=== PATIENT | male | born 1985 | race Caucasian/White ===

== ENCOUNTER 2020-10-17 06:47 | Day surgery (SDC) | payer OTHER, SELFPAY ==
[2020-10-17] VITALS (7 sets, daily range): BP systolic 131–159; BP diastolic 82–104; PULSE 49–88; RESP 16–22; TEMP 35.9–36.2; O2SAT 98–100; BMI 50.3
--- NOTE | 2020-10-17 07:16 | RAD_ITS ---
STUDY: X-RAY - ABDOMEN/PELVIS REASON FOR EXAM: Male, 35 years old. PREOP LEFT KIDNEY STONE TECHNIQUE: Single AP view of the abdomen / pelvis. COMPARISON: None. FINDINGS: There is a moderate amount of colonic fecal material. The visualized liver, spleen and kidneys are grossly normal in size and morphology. Normal soft tissue structures. There is widening of the femoral necks bilaterally. Femoral acetabular impingement should be ruled out. RAD/Abdomen Single View IMPRESSION: No definite calcification is seen overlying the kidneys or course of the ureters. Electronically Signed: Catracho Castro MD at 13:12 EDT , Service support ,
[2020-10-17] MEDS: Lactated Ringers 1,000 ML 100 ML IV ×2 (07:43→10:30)
--- NOTE | 2020-10-17 08:46 | HP.PCM_ITS ---
HPI - General HPI Narrative LIAM WOODSON, is a 35 M who presents for treatment of a mid left ureteral calculus that has failed to pass. Today a KUB can see the stone in the mid left ureter plan to treat the stone with shockwave lithotripsy. [facility] Medical History (Updated 10/17/20 @ 08:[address] Eder Ruff MD) Alcohol use History of renal disease Non-smoker Wears contact lenses Home Medications oxycodone-acetaminophen [Percocet] 1 tab PO Q4H PRN 10/09/20 [History Last Taken Unknown] tamsulosin [Flomax] 0.4 mg PO QHS 10/09/20 [History Last Taken Unknown] oxycodone-acetaminophen 1 tab PO Q6H PRN 7 Days #14 tab 10/17/20 [Rx Last Taken Unknown] Allergy/AdvReac Type Severity Reaction Status Date / Time No Known Allergies Allergy Verified 10/17/20 07:17 Social History Smoking Status: Never smoker Vital Signs Vital Signs Vital Signs: 10/17/20 07:43 Temperature 97.0 F L Temperature Source Temporal Pulse Rate 49 L Respiratory Rate 16 Respiratory Pattern Normal Blood Pressure 141/83 H Blood Pressure Mean 102 Blood Pressure Source Monitor Blood Pressure Position Semi-Fowlers Blood Pressure Location Left Arm Pulse Ox 98 Oxygen Delivery Method Room Air Weight Weight: 168.3 kg Body Mass Index (BMI) 50.3 Physical Exam Const alert and oriented x3 General Appearance: cooperative HEENT normocephalic, head/scalp atraumatic, EAC's normal and TM's normal bilaterally Eyes PERRL and EOMs intact bilaterally Pupil: sluggish Neck no lymphadenopathy, supple and no JVD General: trachea midline Lymph Lymphatic: no lymphadenopathy noted, lymphedema and lymphadenopathy Resp normal respiratory effort, normal air movement and clear to auscultation bilaterally Cardio regular rate, regular rhythm and peripheral pulses 2+ throughout GI soft to palpation, non-tender and non-distended Extremity normal capillary refill and no clubbing, cyanosis or edema General Extremity: no tenderness to palpation of joints or extremities Skin no rashes or lesions noted General Skin Exam: turgor normal Lesions: no lesions Rashes: no rashes Neuro CN's II-XII intact bilaterally Speech: speech normal Motor Exam: strength 5/5 throughout; Negative for general weakness Psych thought process normal, cooperative and affect normal Appearance: appropriate Assessment & Plan Assessment/Plan (1) Ureteral calculus, left: PLAN: Plan to proceed with shockwave lithotripsy in the left side possible stent.
--- NOTE | 2020-10-17 08:47 | PCM.DC ---
Discharge Instructions Diet Discharge Diet: No restrictions Dressing / Incision Call your doctor if your incision/area has: Continuous Slow Oozing, Increased Pain/ Swelling, Increased Redness and Foul Smelling Discharge Call your doctor if you observe: Fever of 101 or Higher, Numbness or Tingling, Shortness of breath, Dizziness, Calf discomfort and Uncontrolled pain Follow Up Care Please Follow Up With: Eder Ruff MD Test Results: Test results from this visit will be discussed in further detail at your follow-up appointment, if applicable. Discharge Plan Admission Primary Reason for Your Visit: left ESWL Attending Provider: Eder Ruff Primary Care Provider: Care Physician,No Primary Discharge Orders/Prescriptions Prescriptions: New oxycodone-acetaminophen 5-325 mg tablet 1 tab PO Q6H PRN (Reason: pain) 7 Days Qty: 14 RF: 0 Continued oxycodone-acetaminophen [Percocet] 5-325 mg Tablet 1 tab PO Q4H PRN (Reason: Pain) RF: 0 tamsulosin [Flomax] 0.4 mg Capsule 0.4 mg PO QHS RF: 0 Referrals / Follow Up: Eder Ruff MD [STAFF PHYSICIAN] - Care Physician,No Primary [Primary Care Provider] - Disposition Discharge Orders: Discharge Patient (Routine); Ordered 10/17/20 Ordered By: Dr. Eder Ruff
--- NOTE | 2020-10-17 09:57 | PCM.OPRPT ---
Report of Operation Date of Procedure: 10/17/20 Pre-Operative Diagnosis: Left ureteral calculi Post-Operative Diagnosis: Same Surgery/Procedure Performed:: Left extracorporeal shockwave lithotripsy Description of Surgical Findings:: Patient presents to the hospital for treatment of a kidney stone with shockwave lithotripsy. In the preoperative area and x-ray was done to confirm the location of the stone. The x-ray was reviewed and the stone location was reviewed. In the preoperative setting I spoke with the patient regarding the treatment of the stone how the treatment would be conducted and the expectations after surgery. The patient understands there is a risk of bleeding and infection. Also discussed the very rare risk of hematoma or damage to the kidney. We also discussed the risk that the shockwave machine will fail to break the stone adequately and that the patient may need other surgical procedures. We also discussed the possibility that the patient may need a stent after the procedure. After reviewing the procedure with the patient, the patient is signed the consent form all the patient's questions were addressed and was taken back to the operating room for treatment of a kidney stone. Patient was taken back to the operating room, patient was identified by the nursing staff, we identified the side of the treatment and the patient side of treatment had been marked by my initials. The patient underwent general anesthetic and was placed supine on the lithotripter table. We then used fluoroscopy to identify the stone on the left side. We then positioned the patient under the lithotripter and we used triangulation technique to identify the location of the stone and then we made sure that the stone was engaged in the F2 focal point of F2 Donier lithoprior machine. Once the patient was positioned appropriately and the stone was identified and placed in the F2 focal point of the lithotripter machine we then proceeded with shockwave lithotripsy. In the beginning the shockwave was delivered at a rate of 90 shocks per minute, we monitor the EKG for any ectopy. The power was slowly increased to 5 kV and subsequently at the 7 kV. We then proceeded with the treatment we move the therapy had around during the treatment to make sure the stone stayed in the F2 focal point during the entire treatment and after 4000 shockwaves were delivered to the stone under fluoroscopic guidance the treatment was completed. The patient was given instructions to call the office to make an a follow-up appointment with an xray to evaluate the success of the treatment, pateint understands that its possible the stones may need another procedure.At this point the patient's anesthetic was reversed patient was extubated and taken back to the PACU in stable condition. Surgeon: Eder Ruff Type of Anesthesia: General Drains: None Admit VTE Documentation VTE Present on Admission: No VTE Mechan Device Prophylaxis: SCD's
[2020-10-17] MEDS: Ketorolac 15 MG/ML Vial IV (10:30)
== END 2020-10-17 11:32 ==
LOC: SDC 06:50 → AC 06:54
PROVIDERS: Referring Provider Urology; Visit Provider Urology
PROC: (CPT 50590; principal; 2020-10-17 08:50)
DX: N20.1 Calculus of ureter (principal)
CPT/HCPCS: 00873; 50590; 74018; J7120; J2405

== ENCOUNTER → 2020-11-04 08:37 | Outpatient (CLI) | payer OTHER, SELFPAY ==
[2020-10-17 07:43] VITALS: BMI 50.3
--- NOTE | 2020-11-04 08:45 | RAD_ITS ---
STUDY: X-RAY - ABDOMEN/PELVIS REASON FOR EXAM: Male, 35 years old. CALCULUS OF URETER TECHNIQUE: Two AP supine views of the abdomen and pelvis. COMPARISON: None. FINDINGS: Normal visualized lung bases. There is an unremarkable bowel gas pattern. There is no demonstrated free abdominal air. The visualized liver, spleen and kidneys are grossly normal in size and morphology. Normal soft tissue structures. Normal visualized osseous structures. RAD/Abdomen Single View IMPRESSION: Normal x-ray examination of the abdomen and pelvis. No ureteral calculus identified. Electronically Signed: Billy Muhammad MD at 19:54 EDT Tel , Service support ,
== END ==
PROVIDERS: Referring Provider Nurse Practitioner Adult Health; Visit Provider Nurse Practitioner Adult Health
DX: N20.1 Calculus of ureter (principal); R31.0 Gross hematuria
CPT/HCPCS: 74018; 87086

== ENCOUNTER 2021-02-11 16:38 | Emergency (ER) | payer OTHER, SELFPAY ==
[2021-02-11 16:39] VITALS: BP 172/103; PULSE 85; RESP 16; TEMP 36.2; O2SAT 100; BMI 50.1
--- NOTE | 2021-02-11 16:55 | CT_ITS ---
STUDY: CT ABDOMEN AND PELVIS WITHOUT CONTRAST REASON FOR EXAM: Male, 35 years old. Right flank pain. Kidney stone. RADIATION DOSAGE (If Supplied By Facility): CTDIvol = ( 24.18 ) mGy, DLP = ( 1365.23 ) mGycm TECHNIQUE: Transaxial images were obtained from the dome of the diaphragm to the symphysis pubis without oral contrast, and without intravenous contrast. Sagittal and coronal images were reconstructed. Individualized dose optimization techniques were used for this CT. COMPARISON: Abdomen, 11/04/2020. FINDINGS: The visualized lung bases are unremarkable. The visualized portions of the heart are within normal limits. There is diffuse fatty infiltration liver without focal mass. Minimal focal fatty sparing in the gallbladder fossa. Normal gallbladder and extrahepatic biliary system. Normal spleen. Normal pancreas. Normal bilateral adrenal glands. The right kidney is of normal size and cortical thickness. There is mild hydronephrosis. There is mild ureteral dilatation to the pelvic side wall where there is an obstructing 4 mm calcification (image 162 series 2).. Normal left kidney. Normal left ureter. Normal visualized stomach. Normal small intestine. Normal colon. The appendix is visualized and appears normal. Normal abdominal aorta. Normal inferior vena cava. Normal retroperitoneum. Normal urinary bladder. Normal prostate. No pelvic lymphadenopathy. No free air or free fluid is seen within the peritoneal cavity. Small umbilical hernia of omental fat. The bowel wall is otherwise unremarkable. Mild degenerative changes of the lower lumbar spine with associated spinal stenosis CT/Abdomen/Pelvis without Cont IMPRESSION: 1. Distal right ureteral calculus with [id number] obstructive uropathy. 2. Fatty infiltration of liver without mass. 3. Degenerative changes of the lumbar spine. Electronically Signed: Francisco Gaming DO at 17:46 EDT Tel [phone], Service support ,
--- NOTE | 2021-02-11 16:55 | ED.VIS.GI ---
HPI HPI - GI History of Present Illness Chief Complaint: Flank Pain Informant: patient Abdominal Pain/Flank Pain Onset: Weeks (2) Context: Gradual Onset Timing: Continuous and Waxes and wanes Quality: Stabbing Location: RLQ and Right Flank Current Severity: Severe Maximum Severity: Severe Worsened by: Nothing Relieved by: Nothing Nausea/Vomiting/Emesis GI Symptom: Positive for Nausea; Negative for Vomiting Diarrhea/Melena/Hematochezia GI Symptom: Negative for Diarrhea, Melena and Hematochezia Associated Symptoms Associated Symptoms: Positive for Dysuria and Hematuria Narrative Narrative: Patient presents with right flank pain that has been getting progressively worse over the past 2 weeks. Patient states it became severe today. Patient states it is sharp and stabbing. Patient states it is over the right flank. Patient states it radiates into his right inguinal area and right testicle. Patient admits to nausea but denies any vomiting. Patient denies any diarrhea, melena, or hematochezia. Patient does admit to some mild dysuria. Patient also admits to some hematuria. Patient denies any fevers or chills. Patient states he has had a kidney stone on the left in the past and states this feels similar to that. PFSH PFS Medical History Alcohol use History of renal disease Non-smoker Wears contact lenses Home Medications oxycodone-acetaminophen [Percocet] 1 tab PO Q4H PRN 10/09/20 [History Last Taken Unknown] tamsulosin [Flomax] 0.4 mg PO QHS 10/09/20 [History Last Taken Unknown] oxycodone-acetaminophen 1 tab PO Q6H PRN 3 Days #14 tab 02/11/21 [Rx Last Taken Unknown] Allergy/AdvReac Type Severity Reaction Status Date / Time No Known Allergies Allergy Verified 10/17/20 07:17 Social History Smoking Status: Never smoker ROS ROS ED Constitutional Constitutional ED: Reports sweats; Denies chills or fever(s) Eyes Eyes: Denies blurry vision or change in vision ENT ENT ED: Denies rhinorrhea or sore throat Cardiovascular Cardiovascular: Denies chest pain or palpitations Respiratory/Chest Respiratory/Chest: Denies cough or dyspnea Gastrointestinal Gastrointestinal: Reports abdominal pain and nausea; Denies vomiting Genitourinary Genitourinary ED: Denies dysuria or hematuria Musculoskeletal Musculoskeletal: Reports back pain; Denies neck pain Integumentary Denies abscess or rash Neurologic Neurologic: Denies headache(s) or weakness Allergic/Immunologic Allergic/Immunologic ED: Denies mouth swelling or urticaria EXAM Physical Exam Const Vital Signs: 02/11/21 16:39 02/11/21 19:07 Temperature 97.1 F L Temperature Source Temporal Pulse Rate 85 Respiratory Rate 16 16 Blood Pressure 172/103 H Blood Pressure Mean 126 Pulse Ox 100 Oxygen Delivery Method Room Air Positive well nourished and well developed General Appearance ED: well developed HEENT Reports moist mucous membranes Neck supple and no JVD Resp normal respiratory effort and clear to auscultation bilaterally Cardio regular rate, regular rhythm and no murmurs GI normal to inspection, nondistended, normoactive bowel sounds Palpation: soft and tender RLQ; Negative for guarding or rebound tenderness present Back/Spine General Back: CVA tenderness right Extremity normal to inspection General Extremety ED: Negative for edema or tenderness General Extremity: Negative for edema Neuro oriented x3, CN's II-XII intact bilaterally and no sensory deficits noted Sensorium / Orientation: alert Motor Exam: strength 5/5 throughout Psych mental status grossly normal Skin no rashes or lesions noted MDM MDM MDM Narrative Medical decision making narrative: Patient was given IV fluids, morphine, Toradol, and Zofran. CBC was within normal limits. Basic metabolic profile was normal. Urinalysis shows occult blood of 250 with 25-50 red blood cells. There is no evidence of urinary tract infection. CT scan of the abdomen and pelvis was obtained. There is a 4 mm right distal ureteral calculus with mild hydroureter and hydronephrosis. Patient is feeling better on reevaluation. Patient was advised of his findings. Patient was given a prescription for Percocet. Patient was instructed to drink plenty of fluids. Patient was instructed to follow-up with his primary care physician and urologist in 3 to 5 days. Patient understood and was agreeable with the plan. All questions were answered. Lab Data Attestation: I reviewed the patient's lab results. Labs: Laboratory Results - last 24 hr 02/11/21 02/11/21 02/11/21 17:11 17:11 18:27 WBC 8.0 RBC 5.19 Hgb 16.4 Hct 49.3 MCV 95.0 H MCH 31.6 MCHC 33.3 RDW Std Deviation 44.1 H RDW Coeff of Sophia 12.7 Plt Count 317 MPV 10.6 Immature Gran % (Auto) 0.300 Neut % (Auto) 51.0 Lymph % (Auto) 36.2 Jackson % (Auto) 10.8 H Eos % (Auto) 1.1 Baso % (Auto) 0.6 Absolute Neuts (auto) 4.1 Absolute Lymphs (auto) 2.89 Nucleated RBC % 0 Sodium 140 Potassium 3.7 Chloride 104 Carbon Dioxide 30.0 Anion Gap 6 BUN 12 Creatinine 1.07 Estim Creat Clear Calc 103.75 Est GFR (MDRD) Af Amer 100 Est GFR (MDRD) Non-Af 82 BUN/Creatinine Ratio 11.2 Glucose 86 Calcium 9.0 Urine Color Yellow Urine Clarity Clear Urine pH 6.0 Ur Specific [place] 1.015 Urine Protein 30 H Urine Glucose (UA) Normal Urine Ketones Negative Urine Occult Blood 250 H Urine Nitrite Negative Urine Bilirubin Negative Urine Urobilinogen Normal Ur Leukocyte Esterase 25 H Urine RBC 25-50 SEEN Urine WBC 0 SEEN Ur Squamous Epith Cells 0 SEEN Ur Transition Epith Cell 0-5 SEEN Urine Bacteria 0 SEEN Urine Mucus 1+ Radiography Diagnostic Testing: Clinical Impression(s) from Imaging Studies Abdomen/Pelvis CT 02/11/21 16:55 IMPRESSION: 1. Distal right ureteral calculus with [id number] obstructive uropathy. 2. Fatty infiltration of liver without mass. 3. Degenerative changes of the lumbar spine. Electronically Signed: Francisco Gaming DO at 17:46 EDT Tel [phone], Service support , Discharge Plan Triage Chief Complaint: Flank Pain ED Provider: Dante Blakely Dx/Rx/DC Orders Clinical Impression: Right distal ureteral calculus Instructions: ED Kidney Stone w/ Colic Prescriptions: Continued oxycodone-acetaminophen 5-325 mg tablet 1 tab PO Q6H PRN (Reason: pain) 3 Days Qty: 14 RF: 0 No Action oxycodone-acetaminophen [Percocet] 5-325 mg Tablet 1 tab PO Q4H PRN (Reason: Pain) RF: 0 tamsulosin [Flomax] 0.4 mg Capsule 0.4 mg PO QHS RF: 0 Primary Care Provider: Care Physician,No Primary Referrals: Eder Ruff MD [STAFF PHYSICIAN] - 3-5 Days Care Physician,No Primary [Primary Care Provider] - Disposition Disposition: Home, Self Care
[2021-02-11] MEDS: Ketorolac 30 MG/ML Syringe IV (17:07)
[2021-02-11] MEDS: Morphine 4 MG/ML Syringe IV (17:07)
[2021-02-11] MEDS: Ondansetron 4 MG/2 ML Vial IV (17:07)
[2021-02-11] MEDS: 0.9% Normal Saline 1,000 ML 250 ML IV (17:14)
[2021-02-11 17:41] LABS: Absolute Lymphocyte Count 2.89 X10^3/uL (0.83-4.51); Absolute Neutrophil Count 4.1 X10^3/uL (2.0-7.7); Basophil# 0.05 X10^3/uL; Basophil% 0.6 % (0-1); Eosinophil# 0.09 X10^3/uL; Eosinophils% 1.1 % (0-5); Hematocrit 49.3 % (40-54); Hemoglobin 16.4 g/dL (13.0-16.5); Lymphocyte # 2.89 X10^3/ul (0.83-4.51); Lymphocyte % 36.2 % (19-41); Mean Corp Hgb Conc 33.3 g/dL (32-36); Mean Corpuscular Hgb 31.6 pg (27.0-32.0); Mean Platelet Vol. 10.6 fl (6.2-12.0); Monocyte# 0.86 X10^3/uL; Monocyte% 10.8 % (0-10); NRBC Flagged by Analyzer 0 % (0-5); Neutrophil # 4.08 X10^3/uL (2.7-7.7); Platelet Count 317 K/mm3 (150-450); RBC Distribution Width CV 12.7 % (11.6-14.6); RBC Distribution Width SD 44.1 fl (35.1-43.9); Red Blood Count 5.19 M/mm3 (4.6-6.2)
[2021-02-11 17:42] LABS: Anion Gap 6 (5-15); BUN 12 mg/dL (7-18); BUN/Creat Ratio 11.2 RATIO (10-20); Chloride 104 mmol/L (98-107); Creatinine, Serum 1.07 mg/dL (0.70-1.30); EST Glomerular Filtration Rate 82 mL/min (>60); Est Glom Filt Rate - Afr Amer 100 mL/min (>60); Estimated Creatinine Clearance 103.75 ml/min; Glucose 86 mg/dL (74-106); Potassium 3.7 mmol/L (3.5-5.1); Sodium Level 140 mmol/L (136-145)
[2021-02-11 18:32] LABS: Bacteria 0 SEEN /hpf (None Seen); White Blood Cells 0 SEEN /hpf (0-5)
[2021-02-11 18:34] LABS: Color, Urine Yellow (Yellow); Glucose, Dipstick Normal (Normal); Ketone-Dipstick Negative (Negative); Leukocyte Esterase-Dipstick 25 /ul (Negative); Nitrite-Dipstick Negative (Negative); Occult Blood-Urine 250 /ul (Negative); Protein-Dipstick 30 mg/dl (Negative); Specific Gravity, Urine 1.015 (1.002-1.030); Urine Bilirubin Dipstick Negative (Negative); Urine Clarity Clear (Clear); Urine Urobilinogen Normal (Normal)
[2021-02-11 18:41] LABS: Mucous, Urine 1+ /hpf (<or=2+); Red Blood Cells-Urine 25-50 SEEN /hpf (0-5); Squamous Epithelial Cells - UA 0 SEEN /hpf (0-5); Transitional Epithelial - Ur 0-5 SEEN /hpf (0-5)
[2021-02-11 19:07] VITALS: RESP 16
== END 2021-02-11 19:43 | disposition home or self-care (01) ==
PROVIDERS: Emergency Provider Emergency Medicine
DX: N13.2 Hydronephrosis with renal and ureteral calculous obstruction (principal); R10.9 Unspecified abdominal pain; Z87.442 Personal history of urinary calculi
CPT/HCPCS: 74176; 80048; 81001; 85025; 96361; 96374; 96375; 99282; J7030; A4216; J2405

== ENCOUNTER 2021-03-11 08:33 | Emergency (ER) | payer OTHER, SELFPAY ==
[2021-03-11 08:34] VITALS: BP 154/96; PULSE 91; RESP 24; TEMP 36.2; O2SAT 100; BMI 50.1
--- NOTE | 2021-03-11 08:46 | EDS_ITS ---
HPI HPI - GI History of Present Illness Chief Complaint: Flank Pain Informant: patient Abdominal Pain/Flank Pain Onset: Today and Hours Context: Sudden Onset Timing: Continuous Quality: Sharp Location: Right Flank Current Severity: Moderate Maximum Severity: Moderate Worsened by: Nothing Relieved by: Nothing Nausea/Vomiting/Emesis GI Symptom: Negative for Nausea Diarrhea/Melena/Hematochezia GI Symptom: Negative for Diarrhea Associated Symptoms Associated Symptoms: Negative for Dysuria, Frequency and Hematuria Narrative Narrative: 35-year-old male history of kidney stones needed 1 removed by lithotripsy. States around 4 AM this morning he started having right flank and groin pain. Denies any fever or chills. No dysuria hematuria. States it feels like prior kidney stone. He denies any vomiting or diarrhea. Nothing particular makes the pain better or worse. Denies any abdominal trauma. Prior similar symptoms: Yes Recent Illness/Hospitalization: No PFSH PFSH Medical History (Updated 03/11/21 @ 11:[address] Mc Weaver MD) Alcohol use Kidney stones Non-smoker Wears contact lenses Home Medications tamsulosin [Flomax] 0.4 mg PO QHS 10/09/20 [History Last Taken Unknown] oxycodone-acetaminophen 1 tab PO Q6H PRN 3 Days #14 tab 02/11/21 [Rx Last Taken Unknown] cephalexin 500 mg PO Q6H 7 Days #28 cap 03/11/21 [Rx Last Taken Unknown] oxycodone 5 mg PO Q4H PRN 3 Days #14 cap 03/11/21 [Rx Last Taken Unknown] Allergy/AdvReac Type Severity Reaction Status Date / Time No Known Allergies Allergy Verified 03/11/21 08:36 Social History Smoking Status: Never smoker ROS ROS ED ROS Narrative Denies. Review of Systems ROS Unobtainable: Denies due to encephalopathy Constitutional Constitutional ED: Denies fever(s) ENT ENT ED: Denies ear pain Cardiovascular Cardiovascular: Denies chest pain Respiratory/Chest Respiratory/Chest: Denies dyspnea Gastrointestinal Gastrointestinal: Reports abdominal pain Genitourinary Genitourinary ED: Denies dysuria or hematuria Musculoskeletal Musculoskeletal: Denies myalgias Integumentary Denies rash Neurologic Neurologic: Denies headache(s) Psychiatric Psychiatric: Denies depression Endocrine Endocrinology: Denies polyuria Hematologic/Lymphatic Hematologic/Lymphatic: Denies easy bruising Allergic/Immunologic Allergic/Immunologic ED: Denies urticaria EXAM Physical Exam Narrative Exam Narrative: 35-year-old male standing upright in the room pacing. Complaining right flank pain. Vital signs stable afebrile. He does not look septic or toxic. H EENT exam unremarkable. Lungs are clear. Heart regular rhythm. Abdomen soft nondistended normal bowel sounds no peritoneal signs. No significant tenderness. He is morbidly obese. Back nontender. Extremities moves all 4. Nontender no edema. Neurologically awake alert with no focal motor deficits. Const Vital Signs: 03/11/21 08:34 03/11/21 11:10 Temperature 97.2 F L Temperature Source Temporal Pulse Rate 91 Respiratory Rate 24 H 17 Blood Pressure 154/96 H Blood Pressure Mean 115 Pulse Ox 100 Oxygen Delivery Method Room Air Room Air Positive well nourished, well developed and obese; Negative for cachectic or unkempt General Appearance ED: well developed and NAD; Negative for unkempt, cachectic or pallor Nutritional Appearance: obese; Negative for cachectic HEENT Reports moist mucous membranes normocephalic and atraumatic Eyes PERRL and EOMs intact bilaterally Neck no lymphadenopathy, supple and no JVD General: Negative for tenderness Resp normal respiratory effort and clear to auscultation bilaterally Auscultation: Negative for rales, rhonchi or wheezes Cardio regular rate, regular rhythm, S1 normal heart sound, S2 normal heart sound and no murmurs GI non-tender, non-distended and no masses Auscultation: normoactive bowel sounds Palpation: soft; Negative for tender, guarding, rigid or rebound tenderness present Back/Spine no CVA tenderness Extremity full ROM General Extremety ED: Negative for edema or tenderness General Extremity: Negative for edema Neuro CN's II-XII intact bilaterally and moves all extremities Sensorium / Orientation: alert, oriented to person, oriented to place and oriented to time; Negative for confused, lethargic or stuporous Motor Exam: strength 5/5 throughout Psych mental status grossly normal Appearance: Negative for unkempt Skin no wounds General Skin Exam: Negative for jaundice or pallor Lesions: no lesions Rashes: no rashes MDM MDM MDM Narrative Medical decision making narrative: 35-year-old male with right flank pain with a history of kidney stones. I suspect kidney stone. CAT scan, labs and UA being obtained. He will be treated with IV Toradol morphine, Zofran and fluids. Repeat exam patient is doing much better at 11 AM. He was given a second dose of morphine. I discussed all test with him including the urinalysis and need for antibiotics and close follow-up. Lab Data Attestation: I reviewed the patient's lab results. Lab results narrative: BMP electrolytes unremarkable gap of 5 normal BUN and creatinine of 1.2. Glucose 129. CT flank shows a 4 mm distal right ureteral calculi with hydronephrosis. Read by the radiologist and reviewed by me. Urinalysis shows positive nitrites 0-5 red blood cells 5-10 whites 3+ bacteria. Due to that and the stone I will be started on antibiotics and a urine culture will be sent. I will discuss this with the patient also. Labs: Laboratory Results - last 24 hr 03/11/21 03/11/21 08:50 10:28 Sodium 137 Potassium 3.6 Chloride 105 Carbon Dioxide 27.0 Anion Gap 5 BUN 11 Creatinine 1.20 Estim Creat Clear Calc 92.51 Est GFR (MDRD) Af Amer 87 Est GFR (MDRD) Non-Af 72 BUN/Creatinine Ratio 9.2 L Glucose 129 H Calcium 9.1 Urine Color Fay Urine Clarity Clear Urine pH 7.0 Ur Specific [place] 1.015 Urine Protein 30 H Urine Glucose (UA) Normal Urine Ketones 5 H Urine Occult Blood 50 H Urine Nitrite Positive H Urine Bilirubin 3 H Urine Urobilinogen 8 H Ur Leukocyte Esterase 25 H Urine RBC 0-5 SEEN Urine WBC 5-10 SEEN Ur Squamous Epith Cells 0 SEEN Urine Bacteria 3+ Urine Mucus 0 SEEN Radiography Diagnostic Testing: Clinical Impression(s) from Imaging Studies Abdomen/Pelvis CT 03/11/21 09:05 IMPRESSION: Stable right hydronephrosis and distal ureteral calculus (4 mm). Electronically Signed: Markell Norton MD ([place]) at 9:28 EDT , Service support , Discharge Plan Triage Chief Complaint: Flank Pain ED Provider: Mc Weaver Dx/Rx/DC Orders Clinical Impression: Kidney calculi, Acute UTI Instructions: Urinary Tract Infections in Men, ED Kidney Stone w/ Colic Prescriptions: New oxycodone 5 mg capsule 5 mg PO Q4H PRN (Reason: pain) 3 Days Qty: 14 RF: 0 cephalexin 500 mg capsule 500 mg PO Q6H 7 Days Qty: 28 RF: 0 No Action tamsulosin [Flomax] 0.4 mg Capsule 0.4 mg PO QHS RF: 0 oxycodone-acetaminophen 5-325 mg tablet 1 tab PO Q6H PRN (Reason: pain) 3 Days Qty: 14 RF: 0 Other Ambulatory Orders: Culture, Urine (Routine) Timeframe: 1 Day Facility: [facility] - Location: Laboratory Ordered By: Dr. Mc Weaver Primary Care Provider: Care Physician,No Primary Referrals: Eder Ruff MD [STAFF PHYSICIAN] - 3-5 Days Care Physician,No Primary [Primary Care Provider] - Activity Restrictions/Additional Instructions: Plenty of fluids and rest. Motrin and oxycodone for pain. Call and follow-up with Dr. Fuentes. Keflex which is an antibiotic 4 times a day because your urine is early signs of infection with bacteria, white cells and nitrites. Return if feeling a lot worse fever, intractable vomiting or intractable pain. Disposition Disposition: Home, Self Care
[2021-03-11] MEDS: 0.9% Normal Saline 1,000 ML 1000 ML IV (08:58)
[2021-03-11] MEDS: Ketorolac 30 MG/ML Syringe IV (08:58)
[2021-03-11] MEDS: morphine 10 MG/ML Syringe IV (08:59)
[2021-03-11] MEDS: Ondansetron 4 MG/2 ML Vial IV (08:59)
--- NOTE | 2021-03-11 09:05 | CT_ITS ---
EXAM: CT ABDOMEN AND PELVIS WITHOUT INTRAVENOUS CONTRAST CLINICAL INDICATION: Right flank pain, unable to urinate TECHNIQUE: Helically acquired images were obtained of the abdomen and pelvis without intravenous contrast. This CT exam was performed using one or more of the following dose reduction techniques: automated exposure control, adjustment of the mA and/or kV according to patient size, and/or use of iterative reconstruction technique. This report was created using [employer] report generation technology. COMPARISON: 02/11/2021 FINDINGS: LOWER THORAX: Unremarkable. Lung bases are clear. No cardiomegaly. No significant pericardial effusion. ABDOMEN: LIVER: Hepatic steatosis. No hepatic masses. GALLBLADDER AND BILE DUCTS: Unremarkable. No calcified gallstones. No gallbladder distention or wall edema. No intra- or extrahepatic biliary ductal dilation. PANCREAS: Unremarkable. No focal cystic mass. SPLEEN: Unremarkable. Normal size without focal cystic or solid mass. ADRENALS: Unremarkable. No nodules. KIDNEYS AND URETERS: Stable right hydronephrosis and distal ureteral calculus (4 mm). Normal renal size and position. STOMACH AND BOWEL: Unremarkable. No stomach or bowel distention. No focal inflammatory change. PELVIS: APPENDIX: No evidence of acute appendicitis. BLADDER: Unremarkable. REPRODUCTIVE: Unremarkable as visualized. No mass. ABDOMEN and PELVIS: INTRAPERITONEAL SPACE: Unremarkable. No ascites or other fluid collection. No free air. BONES/JOINTS: Degenerative changes of the lumbar spine. No suspicious lytic or blastic abnormality. SOFT TISSUES: Small periumbilical fat-containing hernia. VASCULATURE: Unremarkable. Abdominal aorta is non-dilated. LYMPH NODES: Unremarkable. No enlarged lymph nodes. CT/Abdomen/Pelvis without Cont IMPRESSION: Stable right hydronephrosis and distal ureteral calculus (4 mm). Electronically Signed: Markell Norton MD ([place]) at 9:28 EDT , Service support ,
[2021-03-11 09:16] LABS: Anion Gap 5 (5-15); BUN 11 mg/dL (7-18); BUN/Creat Ratio 9.2 RATIO (10-20); Calcium,Total 9.1 mg/dL (8.5-10.1); Chloride 105 mmol/L (98-107); EST Glomerular Filtration Rate 72 mL/min (>60); Est Glom Filt Rate - Afr Amer 87 mL/min (>60); Estimated Creatinine Clearance 92.51 ml/min; Glucose 129 mg/dL (74-106); Potassium 3.6 mmol/L (3.5-5.1); Sodium Level 137 mmol/L (136-145)
[2021-03-11 10:34] LABS: Mucous, Urine 0 SEEN /hpf (<or=2+); Squamous Epithelial Cells - UA 0 SEEN /hpf (0-5)
[2021-03-11 10:36] LABS: Color, Urine Amber (Yellow); Glucose, Dipstick Normal (Normal); Ketone-Dipstick 5 mg/dl (Negative); Leukocyte Esterase-Dipstick 25 /ul (Negative); Nitrite-Dipstick Positive (Negative); Occult Blood-Urine 50 /ul (Negative); Protein-Dipstick 30 mg/dl (Negative); Specific Gravity, Urine 1.015 (1.002-1.030); Urine Clarity Clear (Clear); Urine Urobilinogen 8 mg/dl (Normal)
[2021-03-11 10:41] LABS: Urine Bilirubin Dipstick 3 mg/dL (Negative)
[2021-03-11 10:42] LABS: Red Blood Cells-Urine 0-5 SEEN /hpf (0-5); White Blood Cells 5-10 SEEN /hpf (0-5)
[2021-03-11 10:43] LABS: Bacteria 3+ /hpf (None Seen)
[2021-03-11] MEDS: morphine 8 MG/ML Syringe IV (11:06)
[2021-03-11 11:10] VITALS: RESP 17
[2021-03-11 11:30] VITALS: BP 127/83; PULSE 90; RESP 12; O2SAT 100
== END 2021-03-11 11:41 | disposition home or self-care (01) ==
PROVIDERS: Emergency Provider Emergency Medicine
DX: N13.6 Pyonephrosis (principal); E66.9 Obesity, unspecified; Z87.442 Personal history of urinary calculi
CPT/HCPCS: 74176; 80048; 81001; 96361; 96374; 96375; 96376; 99283; J7030; A4216; J2405

== ENCOUNTER → 2021-03-26 | Outpatient (CLI) | payer OTHER, SELFPAY ==
[2021-04-15 17:15] LABS: Size 3x3 mm; Source Not Provided
== END | disposition home or self-care (01) ==
LOC: LABSPEC 17:00
PROVIDERS: Visit Provider Urology
DX: N20.1 Calculus of ureter (principal)
CPT/HCPCS: 82360

== ENCOUNTER → 2022-11-18 | Outpatient (CLI) | payer OTHER, SELFPAY ==
[2022-11-18 10:19] LABS: Absolute Lymphocyte Count 2.06 X10^3/uL (0.83-4.51); Absolute Neutrophil Count 3.2 X10^3/uL (2.0-7.7); Basophil# 0.06 X10^3/uL; Eosinophil# 0.13 X10^3/uL; Eosinophils% 2.2 % (0-5); Hematocrit 47.2 % (40-54); Hemoglobin 15.5 g/dL (13.0-16.5); Lymphocyte # 2.06 X10^3/ul (0.83-4.51); Lymphocyte % 34.6 % (19-41); Mean Corp Hgb Conc 32.8 g/dL (32-36); Mean Corpuscular Hgb 31.8 pg (27.0-32.0); Mean Corpuscular Volume 96.9 fL (80-94); Mean Platelet Vol. 11.3 fl (6.2-12.0); Monocyte# 0.49 X10^3/uL; Monocyte% 8.2 % (0-10); NRBC Flagged by Analyzer 0 % (0-5); Neutrophil % 53.7 % (47-70); Platelet Count 259 K/mm3 (150-450); RBC Distribution Width CV 12.6 % (11.6-14.6); RBC Distribution Width SD 45.1 fl (35.1-43.9); Red Blood Count 4.87 M/mm3 (4.6-6.2)
[2022-11-18 10:50] LABS: ALB/GLOB Ratio 0.8 RATIO (0.9-2.4); AST(SGOT) 25 U/L (15-37); Alanine Aminotransfer ALT/SGPT 32 U/L (16-61); Albumin, Serum 3.1 g/dL (3.2-5.0); Alkaline Phosphatase 88 U/L (45-117); Anion Gap 6 (5-15); BUN 10 mg/dL (7-18); BUN/Creat Ratio 12.1 RATIO (10-20); Calcium,Total 8.2 mg/dL (8.5-10.1); Chloride 106 mmol/L (98-107); Cholesterol 159 mg/dL (200); Creatinine, Serum 0.83 mg/dL (0.70-1.30); EST Glomerular Filtration Rate 110 mL/min (>60); Est Glom Filt Rate - Afr Amer 133 mL/min (>60); Globulin 3.7 g/dL (2.2-4.2); Glucose 95 mg/dL (74-106); High Density Lipoprotein 51 mg/dL; Potassium 3.7 mmol/L (3.5-5.1); Protein, Total 6.8 g/dL (6.4-8.2); Sodium Level 140 mmol/L (136-145); Thyroid Stim Hormone (TSH) 1.32 uIU/mL (0.358-3.74); Triglycerides 60 mg/dL; Very Low Density Lipoprotein 12 mg/dL (5-40)
== END | disposition home or self-care (01) ==
LOC: LAB 07:58
PROVIDERS: PCP Family Medicine; Visit Provider Family Medicine
DX: Z00.00 Encounter for general adult medical examination without abnormal findings (principal); E66.01 Morbid (severe) obesity due to excess calories; Z13.220 Encounter for screening for lipoid disorders; Z13.1 Encounter for screening for diabetes mellitus
CPT/HCPCS: 36415; 80053; 80061; 84443; 85025

== ENCOUNTER 2023-01-10 19:03 | Emergency (ER) | payer OTHER, SELFPAY ==
[2023-01-10 19:04] VITALS: BP 146/81; PULSE 71; RESP 14; TEMP 36.6; O2SAT 97; BMI 41.4
--- NOTE | 2023-01-10 19:16 | EKG12_ITS ---
Test Reason : CP Blood Pressure : / mmHG Vent. Rate : 080 BPM Atrial Rate : 080 BPM P-R Int : 138 ms QRS Dur : 086 ms QT Int : 376 ms P-R-T Axes : 028 012 030 degrees QTc Int : 433 ms Normal sinus rhythm Normal ECG No previous ECGs available Confirmed by RAQUEL GAN, HILDA ([id number]), film and video editor KATTY HART ([id number]) on 01/14/2023 11:34:29 AM Referred By: KRISTIAN Confirmed By:HILDA GARCÍA MD
--- NOTE | 2023-01-10 19:18 | EDS_ITS ---
HPI History of Present Illness Chief Complaint: Chest Pain Detail of Chief Complaint: Heart racing Informant: patient Onset/Context/Timing Onset: Today Narrative Narrative: Patient states that he has had intermittent racing heart since 1:00 this afternoon. He states just sitting at rest his heart rate will jump up into the 120s. He reports some slight chest pressure up into his left jaw and down his left arm. He denies shortness of breath. No recent change in activity tolerance. No personal history of heart disease but has never had a stress test or heart cath. He does report a family history of heart disease. [facility] Medical History Alcohol use Kidney stones Non-smoker Wears contact lenses Home Medications tamsulosin 0.4 mg capsule (Flomax) 0.4 mg PO QHS 10/09/20 [History Last Taken Unknown] oxycodone-acetaminophen 5 mg-325 mg tablet 1 tab PO Q6H PRN pain 3 days #14 tabs 02/11/21 [Rx Last Taken Unknown] cephalexin 500 mg capsule 500 mg PO Q6H 7 days #28 caps 03/11/21 [Rx Last Taken Unknown] oxycodone 5 mg capsule 5 mg PO Q4H PRN pain 3 days #14 caps 03/11/21 [Rx Last Taken Unknown] Allergy/AdvReac Type Severity Reaction Status Date / Time No Known Allergies Allergy Verified 03/11/21 08:36 Social History Smoking Status: Never smoker ROS ROS ED Constitutional Constitutional ED: Denies chills or fever(s) Eyes Eyes: Denies discharge from eye(s) ENT ENT ED: Denies discharge from eye(s), rhinorrhea or sore throat Cardiovascular Cardiovascular: Reports chest pain and racing heartbeat Respiratory/Chest Respiratory/Chest: Denies cough or dyspnea Gastrointestinal Gastrointestinal: Denies abdominal pain, nausea or vomiting Genitourinary Genitourinary ED: Denies dysuria Musculoskeletal Musculoskeletal: Denies back pain or extremity pain Integumentary Denies Abrasions or rash Neurologic Neurologic: Denies headache(s) or weakness Psychiatric Psychiatric: Denies anxiety or depression Allergic/Immunologic Allergic/Immunologic ED: Denies lip swelling or urticaria EXAM Physical Exam Const Vital Signs: 01/10/23 19:04 01/10/23 19:37 01/10/23 19:37 Temperature 97.9 F Temperature Source Oral Pulse Rate 71 81 Respiratory Rate 14 22 H Blood Pressure 146/81 H 135/85 H Blood Pressure Mean 102 101 Pulse Ox 97 97 97 Oxygen Delivery Method Room Air Room Air Room Air Positive well nourished and well developed General Appearance ED: well developed HEENT Reports normocephalic and head/scalp atraumatic Eyes PERRL and EOMs intact bilaterally Neck supple Chest Wall inspection of chest normal and palpation of chest normal Resp normal respiratory effort and clear to auscultation bilaterally Cardio regular rate and regular rhythm GI soft to palpation Palpation: soft Extremity normal to inspection Neuro oriented x3 and no sensory deficits noted Sensorium / Orientation: alert Motor Exam: strength 5/5 throughout Psych mental status grossly normal Skin no rashes or lesions noted Heart Score History: Moderately Suspicious ECG: Normal Age: </= 45 years Risk Factors: No Risk Factors Troponin: </= Normal Limit Score: 1 MDM MDM MDM Narrative Medical decision making narrative: Patient placed on alarm security or surveillance monitor. He had taken 1 baby aspirin prior to arrival and is given 3 additional baby aspirin here. EKG obtained to evaluate for cardiac arrhythmia/ischemia. Chest x-ray obtained to evaluate for acute lung pathology, cardiac size, or mediastinal abnormality. Labwork obtained to evaluate for leukocytosis, anemia, and electrolyte derangement. History & Record Review Discussion w/independent historian: Patient and Significant other Lab Data Attestation: I reviewed the patient's lab results. Labs: Laboratory Results - last 24 hr 01/10/23 01/10/23 19:09 21:20 WBC 9.8 RBC 5.09 Hgb 16.4 Hct 49.2 MCV 96.7 H MCH 32.2 H MCHC 33.3 RDW Std Deviation 45.0 H RDW Coeff of Sophia 12.7 Plt Count 275 MPV 10.7 Immature Gran % (Auto) 0.300 Neut % (Auto) 54.9 Lymph % (Auto) 33.7 Grainger % (Auto) 8.8 Eos % (Auto) 1.6 Baso % (Auto) 0.7 Absolute Neuts (auto) 5.4 Absolute Lymphs (auto) 3.31 Nucleated RBC % 0 Sodium 140 Potassium 3.5 Chloride 109 H Carbon Dioxide 27.0 Anion Gap 4 L BUN 8 Creatinine 0.88 Estim Creat Clear Calc 123.70 Est GFR (MDRD) Af Amer 123 Est GFR (MDRD) Non-Af 102 BUN/Creatinine Ratio 9.1 L Glucose 105 Calcium 9.0 Magnesium 2.3 Troponin I High Sens 5 5 Radiography Chest X-Ray - ED: 1 View, Read by ED Physician, Chronic Changes and No Infiltrates Diagnostic Testing: Clinical Impression(s) from Imaging Studies Chest X-Ray 01/10/23 19:22 IMPRESSION: Normal x-ray examination of the chest. Electronically Signed: Duke Kerr MD at 19:33 EDT , EKG Initial EKG: Attestation: I personally reviewed and interpreted this EKG as follows: Interpretation: Sinus Rhythm (Sinus at 80 with no acute ischemia.) Treatment and Re-Evaluation :: CBC was normal white count and hemoglobin. Chemistry studies unremarkable with normal potassium and magnesium initial troponin is 5. Portable chest x-ray reveals chronic changes with no focal infiltrate per my interpretation. Radiology interpretation is reviewed. Repeat troponin is obtained at 2 hours and again returns at 5 for a delta of 0. I did review the patient's alarm security or surveillance monitor from his entire visit. I see no evidence of arrhythmias or tachycardias. Patient be discharged to home with instructions to follow-up with his primary care physician. If he develops fast arrhythmia again that persist I encouraged him to come in [place] can catch the rhythm. If it happens more frequently at home he is to contact his primary care physician about possible Holter monitor. Discharge Plan Triage Chief Complaint: Chest Pain ED Provider: Smiley Keane Dx/Rx/DC Orders Clinical Impression: Chest pain Instructions: ED Chest Pain, Uncertain Cause Prescriptions: No Action tamsulosin [Flomax] 0.4 mg Capsule 0.4 mg PO QHS oxycodone-acetaminophen 5-325 mg tablet 1 tab PO Q6H PRN (Reason: pain) 3 Days Qty: 14 0RF oxycodone 5 mg capsule 5 mg PO Q4H PRN (Reason: pain) 3 Days Qty: 14 0RF cephalexin 500 mg capsule 500 mg PO Q6H 7 Days Qty: 28 0RF Primary Care Provider: Madiha Magallon Referrals: Madiha Magallon MD [Primary Care Provider] - 1 Week Disposition Disposition: Home, Self Care
--- NOTE | 2023-01-10 19:22 | RAD_ITS ---
STUDY: X-RAY CHEST REASON FOR EXAM: Male, 37 years old. chest pain TECHNIQUE: Single AP portable view of the chest. COMPARISON: None. FINDINGS: The lungs are clear and expanded. There is no demonstrated pleural abnormality. Normal size heart. Normal mediastinum and jcarlos. Normal visualized pulmonary arteries. Normal visualized aortic arch and descending thoracic aorta. Normal visualized thoracic spine. Normal visualized ribs, clavicles, and shoulders. There is no demonstrated abnormality of the visualized soft tissue structures of the upper abdomen. RAD/Chest 1 View (Portable) IMPRESSION: Normal x-ray examination of the chest. Electronically Signed: Duke Kerr MD at 19:33 EDT ,
[2023-01-10 19:29] LABS: Absolute Lymphocyte Count 3.31 X10^3/uL (0.83-4.51); Absolute Neutrophil Count 5.4 X10^3/uL (2.0-7.7); Basophil# 0.07 X10^3/uL; Basophil% 0.7 % (0-1); Eosinophil# 0.16 X10^3/uL; Eosinophils% 1.6 % (0-5); Hematocrit 49.2 % (40-54); Hemoglobin 16.4 g/dL (13.0-16.5); Lymphocyte # 3.31 X10^3/ul (0.83-4.51); Lymphocyte % 33.7 % (19-41); Mean Corp Hgb Conc 33.3 g/dL (32-36); Mean Corpuscular Hgb 32.2 pg (27.0-32.0); Mean Corpuscular Volume 96.7 fL (80-94); Mean Platelet Vol. 10.7 fl (6.2-12.0); Monocyte# 0.86 X10^3/uL; Monocyte% 8.8 % (0-10); NRBC Flagged by Analyzer 0 % (0-5); Neutrophil # 5.38 X10^3/uL (2.7-7.7); Neutrophil % 54.9 % (47-70); Platelet Count 275 K/mm3 (150-450); RBC Distribution Width CV 12.7 % (11.6-14.6); Red Blood Count 5.09 M/mm3 (4.6-6.2); White Blood Count 9.8 K/mm3 (4.4-11.0)
[2023-01-10] MEDS: 0.9% Normal Saline 1,000 ML 150 ML IV (19:31)
[2023-01-10] MEDS: Aspirin 81 MG TAB.CHEW 243 MG PO (19:32)
[2023-01-10 19:37] VITALS: BP 135/85; PULSE 81; RESP 22; O2SAT 97
[2023-01-10 19:50] LABS: Anion Gap 4 (5-15); BUN 8 mg/dL (7-18); BUN/Creat Ratio 9.1 RATIO (10-20); Chloride 109 mmol/L (98-107); Creatinine, Serum 0.88 mg/dL (0.70-1.30); EST Glomerular Filtration Rate 102 mL/min (>60); Est Glom Filt Rate - Afr Amer 123 mL/min (>60); Glucose 105 mg/dL (74-106); Magnesium 2.3 mg/dL (1.6-2.6); Potassium 3.5 mmol/L (3.5-5.1); Sodium Level 140 mmol/L (136-145); Troponin-I HS (w/2H Reflex) 5 pg/mL (3.0-78.0)
[2023-01-10 21:26] LABS: Reflex Troponin-HS? (from REC) Y
[2023-01-10 22:16] LABS: Troponin-I HS 5 pg/mL (3.0-78.0)
[2023-01-10 22:24] VITALS: BP 124/77; PULSE 82; RESP 20
== END 2023-01-10 22:26 | disposition home or self-care (01) ==
PROVIDERS: Emergency Provider Emergency Medicine; PCP Family Medicine; Visit Provider Emergency Medicine
DX: R07.9 Chest pain, unspecified (principal)
CPT/HCPCS: 71045; 80048; 83735; 84484; 85025; 93005; 96360; 96361; 99285; J7030

== ENCOUNTER → 2023-03-02 | Outpatient (CLI) | payer OTHER, SELFPAY | END | disposition home or self-care (01) | LOC: SL 20:00 | PROVIDERS: PCP Family Medicine; Referring Provider Family Medicine; Visit Provider Family Medicine | DX: G47.10 Hypersomnia, unspecified (principal) | CPT/HCPCS: 95810 ==

== ENCOUNTER → 2023-05-10 | Outpatient (CLI) | payer OTHER, SELFPAY ==
--- NOTE | 2023-05-10 17:22 | RAD_ITS ---
HISTORY: BACK PAIN. TECHNIQUE: XR Spine Lumbar Min 4 Views. COMPARISON: CT 03/11/2021. FINDINGS: VERTEBRAE: Vertebral body heights preserved. Posterior elements appear intact. ALIGNMENT: No significant anterior or posterior subluxation. INTERVERTEBRAL DISCS: Mild degenerative endplate change of L4-5. Chronic intervertebral disc space narrowing of L5-S1. RAD/L/S Spine Min 4 Views IMPRESSION: No acute fracture or dislocation identified in the lumbar spine. Mild degenerative change of the lower lumbar spine. Electronically Signed: Jodee Mckinley MD at 10:08 EST ,
--- OUTSIDE RECORDS SUMMARY | 2023-05-10 18:32 | XMS RPT_ITS | CCD ---
Author Name Unknown Address [address] [place] [address] Organization [facility] Care Team Providers Care Alfalfa Dehydrator Operator Name Role Phone Dion Henson CNP Unavailable Unavailable PALMER ARIAS Attending Unavailable PALMER ARIAS Primary Care Unavailable PALMER ARIAS Admitting Unavailable Chong Osuna Primary Care Provider [phone] Keith Chacon MD Unavailable Unavailable Unavailable Primary Care Provider UnavailAmanda Christianson PA-C Unavailable Unavailable Chong Jackson PA-C Unavailable Unavailable VAN GAN, DR CERNA Attending UnavailChong Muro Attending Unavailable Chong Jackson Referring Unavailable Chong Jackson Primary Care Unavailable Chong Jackson Attending Unavailable Chong Jackson Primary Care Unavailable Keith Chacon Attending Unavailable Chong Jackson Primary Care Unavailable Amanda Nash Attending Unavailable Chong Jackson Primary Care Unavailable Keith Chacon Referring Unavailable Chong Jackson Attending Unavailable Chong Jackson Primary Care Unavailable Chong Jackson PA-C Unavailable Unavailable Medications Current Medications Medication Drug Class(es) Dates Sig (Normalized) Sig (Original) acetaminophen 325 mg / HYDROcodone bitartrate 5 mg oral tablet (4 sources) Opioid Agonist Start: 10-02-2020 take 1 tablet by mouth every four hours as needed for pain hydrocodone 5 mg-acetaminophen 325 mg tablet take 1 tablet by oral route every 4 hours as needed for pain 1.00 tablet - Active acetaminophen 325 mg / oxyCODONE hydrochloride 5 mg oral tablet (1 source) Opioid Agonist Start: 10-03-2020 End: 10-03-2020 oxycodone-acetamin ophen (PERCOCET) 5-325 MG home pack 1 packet Completed/Discontinued Medications Medication Drug Class(es) Dates Sig (Normalized) Sig (Original) [id number] 200 actuat albuterol 0.09 mg/actuat metered dose inhaler (1 source) beta2-Adrenergic Agonist Start: 06-02-2021 take 2 puff(s) by inhalation every four hours as needed albuterol HFA (PROAIR HFA) 90 mcg/actuation inhaler Indications: Cough Inhale 2 Puffs as instructed every 4 hours as needed. 1 Each 0 06/02/2021 Active Problems Active Problems Problem Classification Problem Date Documented Da te Episodic/Chronic Abdominal pain (8 sources) Unspecified abdominal pain; Translations: [Left flank pain] Episodic Anxiety disorders (8 sources) Irritability and anger; Translations: [Behavior-irritabil ity] Episodic Calculus of urinary tract (9 sources) Ureteric stone; Translations: [Calculus of ureter] Episodic Gastrointestinal hemorrhage (20 sources) Blood in stool; Translations: [Hemorrhage of anus and rectum] Episodic Genitourinary symptoms and ill-defined conditions (8 sources) Gross hematuria; Translations: [Gross hematuria] Episodic Headache; including migraine (8 sources) Headache; Translations: [Frequent headaches] Episodic Hemorrhoids (5 sources) Internal hemorrhoids; Translations: [Other hemorrhoids] Episodic Immunizations and screening for infectious disease (3 sources) Encounter for screening for other viral diseases; Translations: [Encounter for screening for other viral diseases] Onset: 03-24-2020 Episodic Malaise and fatigue (8 sources) Other fatigue; Translations: [Fatigue, unspecified type] Episodic Mood disorders (8 sources) Unspecified mood [affective] disorder; Translations: [Mood disorder] Chronic Other circulatory disease (8 sources) Elevated blood-pressure reading, without diagnosis of hypertension; Translations: [Elevated blood pressure reading] Episodic Other lower respiratory disease (8 sources) Cough Episodic Other nutritional; endocrine; and metabolic disorders (16 sources) Body mass index (BMI) 50.0-59.9, adult Chronic Other nutritional; endocrine; and metabolic disorders (8 sources) Morbid (severe) obesity due to excess calories; Translations: [Class 3 severe obesity without serious comorbidity with body mass index (BMI) of 50.0 to 59.9 in adult, unspecified obesity type] Chronic Other nutritional; endocrine; and metabolic disorders (8 sources) Body mass index (BMI) 45.0-49.9, adult Chronic Other upper respiratory infections (8 sources) Acute sinusitis, unspecified Episodic Residual codes; unclassified (8 sources) Other specified personal risk factors, not elsewhere classified; Translations: [At increased risk of exposure to COVID-19 virus] Episodic Residual codes; unclassified (4 sources) Family history of malignant neoplasm of digestive organs; Translations: [Family hx of colon cancer] Episodic Unclassified (1 source) Unknown / UNK(Unknown) Onset: 05-17-2018 Unclassified (8 sources) Encounter for screening for COVID-19 Viral infection (8 sources) Other coronavirus as the cause of diseases classified elsewhere; Translations: [Other coronavirus as the cause of diseases classified elsewhere] Episodic Past or Other Problems Problem Classification Problem Date Documented Da te Episodic/Chronic Unclassified (1 source) UTI SYMPTOMS/BLOOD IN URINE Onset: 05-17-2018 Unclassified (16 sources) Office/outpatien t visit,est, mod Onset: 12-10-2014 Resolved: 10-03-2020 Unclassified (4 sources) Office/outpatien t visit,new, mod Onset: 06-26-2014 Results Test Name Value Interpretation Reference Range Facil ity Vital Signs Date Time Vital Sign Value Performing Clinician Facility 12-13-2022 08:58-0400 Diastolic Blood Pressure Non-Invasive [address] NEHEMIAH ARAUJO MD [facility] 12-13-2022 08:58-0400 Heart rate 81 /min DR NEHEMIAH ARAUJO MD [facility] 12-13-2022 08:58-0400 Respiratory rate 22 /min DR NEHEMIAH ARAUJO MD [facility] 12-13-2022 08:58-0400 Systolic Blood Pressure Non-Invasive [address] NEHEMIAH ARAUJO MD [facility] 12-13-2022 08:53-0400 Diastolic Blood Pressure Non-Invasive [address] NEHEMIAH ARAUJO MD [facility] 12-13-2022 08:53-0400 Heart rate 80 /min DR NEHEMIAH ARAUJO MD [facility] 12-13-2022 08:53-0400 Respiratory rate 20 /min DR NEHEMIAH ARAUJO MD [facility] 12-13-2022 08:53-0400 Systolic Blood Pressure Non-Invasive [address] NEHEMIAH ARAUJO MD [address] [place] [address] 12-13-2022 08:38-0400 Diastolic Blood Pressure Non-Invasive [address] NEHEMIAH ARAUJO MD [facility] 12-13-2022 08:38-0400 Heart rate 82 /min DR NEHEMIAH ARAUJO MD [facility] 12-13-2022 08:38-0400 Respiratory rate 18 /min DR NEHEMIAH ARAUJO MD [facility] 12-13-2022 08:38-0400 Systolic Blood Pressure Non-Invasive [address] NEHEMIAH ARAUJO MD [facility] 12-13-2022 08:30-0400 Respiratory Rate - Anes 13 br/min DR NEHEMIAH ARAUJO MD [facility] 12-13-2022 08:25-0400 Respiratory Rate - Anes 18 br/min DR NEHEMIAH ARAUJO MD [facility] 12-13-2022 08:20-0400 Respiratory Rate - Anes 0 br/min DR NEHEMIAH ARAUJO MD [facility] 12-13-2022 07:26-0400 Body height [address] NEHEMIAH ARAUJO MD [facility] 12-13-2022 07:26-0400 Body temperature 98.06 [degF] DR NEHEMIAH ARAUJO MD [facility] 12-13-2022 07:26-0400 Body weight [address] NEHEMIAH ARAUJO MD [facility] 12-13-2022 07:26-0400 Body weight 52.85 kg/m2 DR NEHEMIAH ARAUJO MD [facility] 12-13-2022 07:26-0400 Heart rate 82 /min DR NEHEMIAH ARAUJO MD [facility] 09-04-2022 15:18-0400 Body height 182.9 cm Christos Whitehead APRN.FACILITIES TECHNICIAN Work Phone: [facility] 09-04-2022 15:18-0400 Body temperature 98.29 [degF] Christos Whitehead APRN.FACILITIES TECHNICIAN Work Phone: [facility] 09-04-2022 15:18-0400 Body weight 176.9 kg Christos Whitehead APRN.FACILITIES TECHNICIAN Work Phone: [facility] 09-04-2022 15:18-0400 Diastolic blood pressure 82 mm[Hg] Christos Whitehead APRN.FACILITIES TECHNICIAN Work Phone: [facility] 09-04-2022 15:18-0400 Heart rate 78 /min Christos Whitehead APRN.FACILITIES TECHNICIAN Work Phone: [facility] 09-04-2022 15:18-0400 Respiratory rate 16 /min Christos Whitehead APRN.FACILITIES TECHNICIAN Work Phone: [facility] 09-04-2022 15:18-0400 SaO2% (BldA) [Mass fraction] 96 % Christos Whitehead APRN.FACILITIES TECHNICIAN Work Phone: [facility] 09-04-2022 15:18-0400 Systolic blood pressure 174 mm[Hg] Christos Whitehead APRN.FACILITIES TECHNICIAN Work Phone: [facility] 10-03-2020 18:32-0400 Diastolic blood pressure 68 mm[Hg] Corbin Garcia MD Work Phone: [facility] 10-03-2020 18:32-0400 Heart rate 70 /min Corbin Garcia MD Work Phone: [facility] [employer] 10-03-2020 18:32-0400 SaO2% (BldA) [Mass fraction] 100 % Corbin Garcia MD Work Phone: [facility] [employer] 10-03-2020 18:32-0400 Systolic blood pressure 118 mm[Hg] Corbin Garcia MD Work Phone: [facility] 10-03-2020 17:11-0400 Body height 180.3 cm Corbin Garcia MD Work Phone: [facility] 10-03-2020 17:11-0400 Body mass index (BMI) [Ratio] 38.08 kg/m2 Corbin Garcia MD Work Phone: [facility] [employer] 10-03-2020 17:11-0400 Body temperature 97.2 [degF] Corbin Garcia MD Work Phone: [facility] 10-03-2020 17:11-0400 Body weight 123.83 kg Corbin Garcia MD Work Phone: [facility] 10-03-2020 17:11-0400 Respiratory rate 16 /min Corbin Garcia MD Work Phone: [facility] Encounters Encounter Date Encounter Type Care Provider Facility Start: 01-11-2023 ambulatory [facility]ong [facility] Start: 01-11-2023 End: 01-11-2023 Chong Jackson Work Phone: No Location Start: 12-13-2022 End: 12-13-[address] NEHEMIAH ARAUJO MD Facility:[facility] Start: 12-13-2022 End: 12-13-[address] NEHEMIAH ARAUJO MD [facility] Start: 11-17-2022 ambulatory Chong [facility] Start: 11-17-2022 End: 11-17-2022 Chong Jackson Work Phone: [facility] Start: 11-04-2022 ambulatory Keith Chacon [facility] Start: 11-04-2022 End: 11-04-2022 Chong Jackson Work Phone: [facility] Start: 09-29-2022 [facility] Start: 09-29-2022 End: 09-29-2022 Amanda Nash Work Phone: [facility] Start: 09-04-2022 End: 09-04-2022 ambulatory Facility:[facility] Start: 09-04-2022 End: 09-04-2022 Patient encounter procedure Christos Ventura CHEN.FACILITIES TECHNICIAN Work Phone: [facility] Procedures Date Procedure Procedure Detail Performing Clinician Start: 03-27-2021 End: 03-27-2021 Sars-cov-2 detection by dna/rna Keith Chacon MD Start: 01-27-2021 End: 01-27-2021 Sars-cov-2 detection by dna/rna Keith Chacon MD Start: 10-03-2020 Urnls dip stick/tabl et reagent auto microscopy Corbin Garcia MD Work Phone: Start: 10-03-2020 Basic metabolic pane l calcium total Corbin Garcia MD Work Phone: Start: 10-03-2020 CBC W Auto Different ial panel - Blood Corbin Garcia MD Work Phone: Start: 10-03-2020 GLOMERULAR FILTRATION RATE Corbin Garcia MD Work Phone: Start: 10-03-2020 End: 10-03-2020 BP scrn perf rec interval Keith Chacon MD Start: 10-03-2020 End: 10-03-2020 Calc BMI abv up zachary f/u Keith Chacon MD Start: 10-03-2020 End: 10-03-2020 Docrev cur meds by elig clin Keith Chacon MD Start: 09-11-2020 End: 09-11-2020 ADM SARSCOV2 100MCG/0.5ML2ND Keith Chacon MD Start: 08-14-2020 End: 08-14-2020 SARSCOV2 VAC 100MCG/0.5ML IM Keith Chacon MD Start: 09-28-2019 End: 09-28-2019 LDL For DM 100-129mg/dl Keith Mccoy Start: 02-13-2018 End: 02-13-2018 Assay of thyroid stimulating hormone tsh Keith Chacon MD Start: 02-13-2018 End: 02-13-2018 Collection venous blood venipuncture Keith Chacon MD Start: 06-26-2014 End: 06-26-2014 Blood count complete auto&auto difrntl wbc Keith Chacon MD Start: 06-26-2014 End: 06-26-2014 Collection venous blood venipuncture Keith Chacon MD Extracorporeal shock wave lithotripsy of ureter DR NEHEMIAH ARAUJO MD Plan of Treatment Date Care Activity Detail Author Start: 01-07-2023 Influenza vaccination INFLUENZ A (Season Ended) [facility] Start: 11-17-2022 Patient referral Referrals: [facility] Mikhail Pastr[facility] Start: 05-09-2022 DEPRESSION ASSESSMENT DEPRESSION ASS ESSMENT [facility] Start: 11-06-2020 COVID-19 VACCINE (3 - Booster for Moderna series) COVID-19 VACCINE (3 - Booster for Moderna series) [facility] Start: 10-03-[address] Scan Abd/P Nessa domingo (Stone Study) [facility] Start: 2018 LIPID SCREEN LIPID SCREEN [facility] Start: 2002 Urine microalbumin profile DTAP,TDAP,TD (1 - Tdap) [facility] Start: 2001 HEPATITIS C SCREENING HEPATITIS C RICK CAMILO [facility] Start: 2001 HIV SCREENING HIV SCREENING [facility] Start: 1983 HEPATITIS B (1 of 3 - 3-dose series) HEPATITIS B (1 of 3 - 3-dose series) [facility] Immunizations Immunization Date Immunization Notes Care Provider Bentley hansen 09-11-2020 Moderna SARS-COV-2 (COVID-19) vaccine Keith Chacon MD [facility] Payers Date Payer Category Payer Unknown [employer] M[employer] [id number] 2020-Present Indemnity [id number] 2020 Unknown MMO MMO MHS [id number] 2020-Present [phone] [address] [address] [place] [address] Indemnity [id number] 2018 Unknown [id number] 1983 Unknown [id number] 1983 Unknown [id number] 1983 Unknown [id number] 1983 Unknown [id number] 1983 Unknown [id number] 1983 Unknown [id number] Unknown [id number] Social History Date Type Detail Facility Start: 10-03-2020 End: 09-04-2022 Tobacco smoking status MTIS Never smoker [facility] Start: 10-03-2020 End: 09-04-2022 Tobacco use and exposure Never used [facility] Start: 10-03-2020 End: 09-04-2022 Alcohol intake Current drinker of alcohol (finding) [facility] Start: 1985 Sex Assigned At Not on file [facility] Exposure to SARS-CoV -2 (event) Not sure [facility] Start: 08-13-2022 End: 11-04-2022 Tobacco smoking status NHIS Unknown if ever smoked [facility] Start: 08-13-2022 Alcohol intake Alcohol Use Details [facility] Sex Assigned At [facility] Start: 09-04-2022 Alcohol Comment rarely [facility] Start: 12-13-2022 Tobacco smoking status Ex-smoker (fi nding) [facility] Functional Status Date Assessment Result Facility 12-13-2022 Functional Status Awake, Repositions self [facility] 12-13-2022 Functional Status Repositions self [facility] Mental Status Date Assessment Result Facility 12-13-2022 Mental Status Orientation Asse ssment Oriented x 4 [facility] Clinical Notes 09-28-2019 to 12-13-2022 Note Date & Type Note Facility [place] ADMISSION HISTORY AN D PHYSICIAL CHIEF COMPLAINT: HISTORY OF PRESENT ILLNESS: REVIEW OF SYSTEMS: ACTIVE PROBLEMS: (2) Obesity ([id number]) Renal calculus or stone ([id number]) MEDICATIONS: Active Inpt Meds: None Active PRN Meds: None One Time Meds: None Active IV Meds: Lactated Ringers Infusion 1,000 mL (LR 1,000 mL) Start: 12/13/22 7:16:00 EDT, Rate: 50 mL/hr, 12/13/22 7:16:00 EDT ALLERGIES: (1) NKA FAMILY HISTORY: SOCIAL HISTORY: PHYSICAL EXAM: VITALS: [id number]AhhrGa(kg) 12/13 07:2636.7--[id number]/40710.0 24 Hr Tmax: 36.7 at 12/13 07:26 36 Hr Tmax: 36.7 at 12/13 07:26 Vital Signs are the last 5 in the past 48 hours. Weights display the last 5 within 7 days. Initial Wt: 12/13 177.0 kg 389 lb Current Wt: 12/13 177.0 kg 389 lb GENERAL: HEENT: CARDIOVASCULAR: RESPIRATORY: ABDOMEN: EXREMETIES: NEUROLOGICAL: PSYCHIATRIC: LABS: No 36hr Lab Data DIAGNOSTICS: IMPRESSION: PLAN: History and Physical Update I have examined the patient; reviewed the H&P and there are no changes to the H&P unless noted below. [facility] 08-07-2023 Hospital Discharge instructions Patient Education 12/13/2022 08:44:11 Moderate Conscious Sedation, Adult, Care After Moderate Conscious Sedation, Adult, Care After These instructions provide you with information about caring for yourself after your procedure. Your health care provider may also give you more specific instructions. Your treatment has been plannedaccording to current medical practices, but problems sometimes occur. Call your health care provider if you have any problems or questions after your procedure. What can I expect after the procedure? After your procedure, it is common: To feel sleepy for several hours. To feel clumsy and have poor balance for several hours. To have poor judgment for several hours. To vomit if you eat too soon. Follow these instructions at home: For at least 24 hours after the procedure: Do not: ?Participate in activities where you could fall or become injured. ?Drive. ?Use heavy machinery. ?Drink alcohol. ?Take sleeping pills or medicines that cause drowsiness. ?Make important decisions or sign legal documents. ?Take care of children on your own. Rest. Eating and drinking Follow the diet recommended by your health care provider. If you vomit: ?Drink water, juice, or soup when you can drink without vomiting. ?Make sure you have little or no nausea before eating solid foods. General instructions Have a responsible adult stay with you until you are awake and alert. Take vkjp-vht-mcsohkz and prescription medicines only as told by your health care provider. If you smoke, do not smoke without supervision. Keep all follow-up visits as told by your health care provider. This is important. Contact a health care provider if: You keep feeling nauseous or you keep vomiting. You feel light-headed. You develop a rash. You have a fever. Get help right away if: You have trouble breathing. This information is not intended to replace advice given to you by your health care provider. Make sure you discuss any questions you have with your health care provider. Document Released: 02/13/2014 Document Revised: 04/07/2018 Document Reviewed: 08/14/2016 Elsevier Patient Education 2020 [employer] 12/13/2022 08:44:07 Colonoscopy, Adult, Care After, Jqsw-yt-Trls Colonoscopy, Adult, Care After This sheet gives you information about how to care for yourself after your procedure. Your doctor may also give you more specific instructions. If you have problems or questions, call your doctor. What can I expect after the procedure? After the procedure, it is common to have: A small amount of blood in your poop for 24 hours. Some gas. Mild cramping or bloating in your belly. Follow these instructions at home: General instructions For the first 24 hours after the procedure: ?Do not drive or use machinery. ?Do not sign important documents. ?Do not drink alcohol. ?Do your daily activities more slowly than normal. ?Eat foods that are soft and easy to digest. Take mmzq-ejl-kpwdask or prescription medicines only as told by your doctor. To help cramping and bloating: Try walking around. Put heat on your belly (abdomen) as told by your doctor. Use a heat source that your doctor recommends, such as a moist heat pack or a heating pad. ?Put a towel between your skin and the heat source. ?Leave the heat on for 20 30 minutes. ?Remove the heat if your skin turns bright red. This is especially important if you cannot feel pain, heat, or cold. You can get burned. Eating and drinking Drink enough fluid to keep your pee (urine) clear or pale yellow. Return to your normal diet as told by your doctor. Avoid heavy or fried foods that are hard to digest. Avoid drinking alcohol for as long as told by your doctor. Contact a doctor if: You have blood in your poop (stool) 2 3 days after the procedure. Get help right away if: You have more than a small amount of blood in your poop. You see large clumps of tissue (blood clots) in your poop. Your belly is swollen. You feel sick to your stomach (nauseous). You throw up (vomit). You have a fever. You have belly pain that gets worse, and medicine does not help your pain. Summary After the procedure, it is common to have a small amount of blood in your poop. You may also have mild cramping and bloating in your belly. For the first 24 hours after the procedure, do not drive or use machinery, do not sign important documents, and do not drink alcohol. Get help right away if you have a lot of blood in your poop, feel sick to your stomach, have a fever, or have more belly pain. This information is not intended to replace advice given to you by your health care provider. Make sure you discuss any questions you have with your health care provider. Document Released: 05/28/2011 Document Revised: 02/23/2018 Document Reviewed: 01/17/2017 [employer] Patient Education 2020 [employer] Follow Up Care 12/02/2022 09:38:58 With:NEHEMIAH ARAUJO MD Address: [address] [facility] [address] [place] [address]- [phone] When: Unknown Comments:Repeat colonoscopy in 10 years [facility] 08-07-2023 Summary of episode note Discharge Instructions Thank you for allowing [facility] to assist you with your healthcare needs. The following is importantdischarge information regarding your hospital visit. What to do next Follow Up Appointments Follow Up with NEHEMIAH ARAUJO MD When Why: Repeat colonoscopy in 10 years Where: [address] [facility] [address] [place] [address]- [phone] The Following Activity and Diet Have Been Ordered for You Discharge Activity - Ordered -- NO activity restrictions, 12/13/22 8:36:00 EDT Discharge Diet - Ordered -- Follow the post-operative/post-procedure diet instructions provided by your physician's office.,12/13/22 8:36:00 EDT The Following Equipment Has Been Ordered for You Discharge Home Equipment Discharge Wound Care - Ordered -- Follow the post-operative/post-procedure wound care instructions provided by your physician's office., 12/13/22 8:36:00 EDT The Following Treatments Have Been Ordered for You Discharge Labs No qualifying data available. Discharge Radiology No qualifying data available. Other Therapies No qualifying data available. Post Acute Orders No qualifying data available. Someone Will Contact You Regarding These Home Health Referrals No home referrals have been ordered for you. No one will call you. Allergies NKA Medications Please ask your primary doctor or pharmacist before taking any other medication not listed, including over the counter drugs, herbal medications, vitamins and or supplements as they may interact withyour home medications. Please take this list to your next doctor s visit. Bring all medications you take, including over the counter medications, herbals and other supplements with you to your doctor s visit. Patients and families are reminded to discard old lists and to update any records with all medication providers or retail pharmacies. Education Materials Moderate Conscious Sedation, Adult, Care After These instructions provide you with information about caring for yourself after your procedure. Your health care provider may also give you more specific instructions. Your treatment has been plannedaccording to current medical practices, but problems sometimes occur. Call your health care provider if you have any problems or questions after your procedure. What can I expect after the procedure? After your procedure, it is common: To feel sleepy for several hours. To feel clumsy and have poor balance for several hours. To have poor judgment for several hours. To vomit if you eat too soon. Follow these instructions at home: For at least 24 hours after the procedure: Do not: ? Participate in activities where you could fall or become injured. ? Drive. ? Use heavy machinery. ? Drink alcohol. ? Take sleeping pills or medicines that cause drowsiness. ? Make important decisions or sign legal documents. ? Take care of children on your own. Rest. Eating and drinking Follow the diet recommended by your health care provider. If you vomit: ? Drink water, juice, or soup when you can drink without vomiting. ? Make sure you have little or no nausea before eating solid foods. General instructions Have a responsible adult stay with you until you are awake and alert. Take vyra-xai-iugnhzu and prescription medicines only as told by your health care provider. If you smoke, do not smoke without supervision. Keep all follow-up visits as told by your health care provider. This is important. Contact a health care provider if: You keep feeling nauseous or you keep vomiting. You feel light-headed. You develop a rash. You have a fever. Get help right away if: You have trouble breathing. This information is not intended to replace advice given to you by your health care provider. Make sure you discuss any questions you have with your health care provider. Document Released: 02/13/2014 Document Revised: 04/07/2018 Document Reviewed: 08/14/2016 [employer] Patient Education 2020 [employer] Colonoscopy, Adult, Care After This sheet gives you information about how to care for yourself after your procedure. Your doctor may also give you more specific instructions. If you have problems or questions, call your doctor. What can I expect after the procedure? After the procedure, it is common to have: A small amount of blood in your poop for 24 hours. Some gas. Mild cramping or bloating in your belly. Follow these instructions at home: General instructions For the first 24 hours after the procedure: ? Do not drive or use machinery. ? Do not sign important documents. ? Do not drink alcohol. ? Do your daily activities more slowly than normal. ? Eat foods that are soft and easy to digest. Take hash-tms-aejwsbq or prescription medicines only as told by your doctor. To help cramping and bloating: Try walking around. Put heat on your belly (abdomen) as told by your doctor. Use a heat source that your doctor recommends, such as a moist heat pack or a heating pad. ? Put a towel between your skin and the heat source. ? Leave the heat on for 20 30 minutes. ? Remove the heat if your skin turns bright red. This is especially important if you cannot feel pain, heat, or cold. You can get burned. Eating and drinking Drink enough fluid to keep your pee (urine) clear or pale yellow. Return to your normal diet as told by your doctor. Avoid heavy or fried foods that are hard to digest. Avoid drinking alcohol for as long as told by your doctor. Contact a doctor if: You have blood in your poop (stool) 2 3 days after the procedure. Get help right away if: You have more than a small amount of blood in your poop. You see large clumps of tissue (blood clots) in your poop. Your belly is swollen. You feel sick to your stomach (nauseous). You throw up (vomit). You have a fever. You have belly pain that gets worse, and medicine does not help your pain. Summary After the procedure, it is common to have a small amount of blood in your poop. You may also have mild cramping and bloating in your belly. For the first 24 hours after the procedure, do not drive or use machinery, do not sign important documents, and do not drink alcohol. Get help right away if you have a lot of blood in your poop, feel sick to your stomach, have a fever, or have more belly pain. This information is not intended to replace advice given to you by your health care provider. Make sure you discuss any questions you have with your health care provider. Document Released: 05/28/2011 Document Revised: 02/23/2018 Document Reviewed: 01/17/2017 [employer] Patient Education 2020 [email or web address]. Additional Information VACCINATE! IT SAVES LIVES! Members of the community who have not yet received the COVID-19 vaccine and would like to receive it can visit one of [facility] vaccine clinics. There are many vaccine clinic locations within the [facility]. For locations and available times, please visit [email or web address] It is important to note that some COVID mobile vaccine clinics are held outdoors and may be canceled in rainy or stormy conditions. To learn more about pediatric vaccinations (ages 5-11), we invite you to visit the [employer] webpage. https://www.[employer].org/pages/7593-Xaaix-Lbqtafnkoqm-Jvwodqyloe-Rhglu-Lyz stions.htmlTo learn more about the COVID-19 vaccine, we invite you to visit the CDC website for a list of frequently asked questions.https://www.cdc.gov/coronavirus/2019-ncov/vaccines/faq.html [employer] Patient Portal Access Instructions: Stay connected with your healthcare team and access your personal medical information anytime with the [employer] Patient Portal. Please follow the directions below to create your [employer] account: 1.Access the email account you provided upon registration to the hospital/physician office.2.Look for an invitation email from [facility].3.Open the email and access the invitation link: AcceptInvitation to [employer].4.Fill in the required urbano to create your account. To access your account, visit [employer]. Click the blue button labeled Access Patient Portal and then log in with the username and password that you created in the steps above. You will be able to view your test results, lab results, a summary of your visits, upcoming appointments and more. There is also a convenient messaging option where you can send secure messages to your p rovider. In addition, you will have the ability to download any documents or summaries to your computer and/or send the information securely to a physician. Remember that your healthcare information is confidential, so carefully consider who you will allowto register on the [facility] for access to your information. You can also access the [place] One[facility] Patient Portal on the [place] [facility] kathy. Simply click on Patient Portal and then log into your account. If you would like to receive a full copy of your medical records, please contact the [facility] Medical Records Department by calling [phone], Tuesday through Tuesday between 8 a.m. and 4:30 p.m. HOW TO SAFELY DISPOSE OF PRESCRIPTION MEDICATIONS Please use one of the following methods to safely dispose of your unused medications. 1.Use a drug disposal kit: the drug disposal pouch allows you to safely discard your old and unuseddrugs. Ask your nurse to give you one when you are discharged.2.Visit a local take-back location: Many local pharmacies and police departments have programs that collect old and unwanted prescriptiondrugs. Call your local pharmacy or go to http://TOK.tv.Cosmotourist/7E8Fr9a to find one close to you.3.Make use of household items: Use cat litter or old coffee grounds to dispose medications if other options arenot available. Mix your drugs with these household products, seal them in an airtight container andthrow it into the garbage. Call [facility]: [phone] to be sure your drugs can be disposed of in this way. Some medicines may require a different approach.4.Never flush your medications down the toilet. IF YOU HAVE BEEN PRESCRIBED AN OPIOID FOR PAIN If you have been prescribed an opioid (such as hydrocodone, oxycodone or morphine), it is critical to understand the possible side effects and risks of opioid pain medications. Even when taken as directed, opioids can have several side effects including: Tolerance, meaning you might need to take more of a medication for the same pain relief. Nausea, vomiting and/or constipation. Sleepiness, dizziness, dry mouth, confusion, depression or itching. Physical dependence, meaning you have withdrawal symptoms when a medication is stopped, can develop within a few days. KNOW YOUR RESPONSIBILITIES It is important to know exactly how much and how often to take the opioid pain medications you are prescribed. Never take opioids in higher amounts or more often than prescribed. Do not combine opioids with alcohol or other drugs that cause drowsiness, such as benzodiazepines, also known as benzos, including diazepam and alprazolam, muscle relaxants or sleep aids. Never sell or share prescription opioids. This is illegal. Store opioids in a secure place and out of reach of others (including children, family, friends and visitors). The last page of this document has been signed and retained as a CHART COPY. Signatures Patient Education Materials Moderate Conscious Sedation, Adult, Care After Colonoscopy, Adult, Care After, Okie-ib-Igkg Medication Leaflets My discharge plan and instructions have been reviewed and explained to me and I,FLORENCIO WOODSON understand my current condition and have read and understand these discharge instructions. I have received a written copy of the plan/instructions. If I have questions, I am aware that I should contact my doctor. 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 Mental status: at preoperative baseline, alert & oriented x 4. Respiratory function: lungs are clear to auscultation. Respiratory support: none. CV function: Normal rate. Cardiovascular support: none. Pain. Nausea status: denies nausea. Postoperative hydration status: within normal limits. Digitally Signed by ANGEL NAIR on 12/13/2022 08:43 AM [facility]08-07-2023 Note [place] ADMISSION HISTORY AND PHYSICIAL CHIEF COMPLAINT: HISTORY OF PRESENT ILLNESS: REVIEW OF SYSTEMS: ACTIVE PROBLEMS: (2) Obesity ([id number]) Renal calculus or stone ([id number]) MEDICATIONS: Active Inpt Meds: None Active PRN Meds: None One Time Meds: None Active IV Meds: Lactated Ringers Infusion 1,000 mL (LR 1,000 mL) Start: 12/13/22 7:16:00 EDT, Rate: 50 mL/hr, 12/13/22 7:16:00 EDT ALLERGIES: (1) NKA FAMILY HISTORY: SOCIAL HISTORY: PHYSICAL EXAM: VITALS: GvufbxVxvgTIVvzbwGFWmN3BNV3LmwzVt(kg) 12/13 07:2636.7--[id number]/21469.0 24 Hr Tmax: 36.7 at 12/13 07:26 36 Hr Tmax: 36.7 at 12/13 07:26 Vital Signs are the last 5 in the past 48 hours. Weights display the last 5 within 7 days. Initial Wt: 12/13 177.0 kg 389 lb Current Wt: 12/13 177.0 kg 389 lb GENERAL: HEENT: CARDIOVASCULAR: RESPIRATORY: ABDOMEN: EXREMETIES: NEUROLOGICAL: PSYCHIATRIC: LABS: No 36hr Lab Data DIAGNOSTICS: IMPRESSION: PLAN: History and Physical Update I have examined the patient; reviewed the H&P and there are no changes to the H&P unless noted below. Digitally Signed by NEHEMIAH ARAUJO MD on 12/13/2022 08:22 AM [facility]08-07-2023 Anesthesiology Consult note Patient: FLORENCIO WOODSON Age: 37 years Sex: Male : 1985 Associated Diagnoses: None Author: ANGEL NAIR Preoperative Information Time of last food or liquid consumption: 12/13/2022 05:30:00 Anesthesia history Patient's history: negative. Family's history: negative. Health Status Allergies: Allergic Reactions (Selected) NKA, Allergies (1) ActiveReaction NKANone Documented Current medications: (Selected) Inpatient Medications Ordered LR 1,000 mL: 50 mL/hr, Intravenous, Medications (1) Active Scheduled: (0) Continuous: (1) Lactated Ringers Infusion 1,000 mL 1,000 mL, Intravenous, 50 mL/hr PRN: (0) Problem list: Active Problems (2) Obesity Renal calculus or stone Histories Past Medical History: No active or resolved past medical history items have been selected or recorded., BMI 52 Family History: High blood pressure Father Procedure history: ESWL (extracorporeal shockwave lithotripsy) of ureteric calculus ([id number]). Social History Social & Psychosocial Habits Alcohol 12/13/2022 Use: Never Substance Abuse 12/13/2022 Use: Never Tobacco 12/13/2022 Tobacco Use: Former smoker, quit more . Physical Examination Vital Signs 12/13/2022 7:26 EDT Temperature Temporal Artery 36.7 DegC Peripheral Pulse Rate 82 bpm Respiratory Rate 16 br/min Systolic Blood Pressure Non-Invasive 148 mmHg HI Diastolic Blood Pressure Non-Invasive 91 mmHg ND Vital Signs(last 24 hrs) Last Charted Resp Rate 16 br/min (DEC 13 07:) SBPH 148mmHg (DEC 13:) DBPH 91mmHg (DEC 13:) BMI52.85 (DEC 13:) Measurements from flowsheet : Measurements 12/13/2022 7:26 EDT Height 183 cm Admission Weight 177 kg Weight Method Stated [place] Body Weight 77.71 kg BSA Admission 2.83 Body Mass Index 52.85 kg/m2 General: Alert and oriented. Airway: Normal temporomandibular joint mobility. Mallampati classification: III (soft palate, base of uvula visible). Head: Normocephalic. Dentition Evaluation: Dentures, upper, Capped teeth. Neck: thick neck. Respiratory: Lungs are clear to auscultation. Cardiovascular: Normal rate. Heart Sounds: Normal. Gastrointestinal: Soft, BMI 52. Musculoskeletal Normal range of motion. Integumentary: Intact. Neurologic: Alert. Review / Management Results review: No qualifying data available , Lab results 12/13/2022 7:26 EDT Designated Person #1 We May Share YESI [phone] Designated Person #1 Relationship Spouse Height 183 cm Admission Weight 177 kg Weight Method Stated [place] Body Weight 77.71 kg BSA Admission 2.83 Body Mass Index 52.85 kg/m2 Temperature Temporal Artery 36.7 DegC Peripheral Pulse Rate 82 bpm Respiratory Rate 16 br/min Systolic Blood Pressure Non-Invasive 148 mmHg HI Diastolic Blood Pressure Non-Invasive 91 mmHg HI Oxygen Saturation 96 % Status N/A Sensory Deficits None Infectious Disease Symptoms Patient states no symptoms Infectious Disease Recent Exposure No Alcohol and Drug Use No Employee of Institutional Living No Health Care Employee No History of Exposure to TB No History of Positive Chest X-Ray for TB No History of Positive TB Skin Test No Homeless No Known Immunosuppression No Recent Immigrant No Resident of Institutional Living No Bloody Sputum No Fatigue No Fever No Loss of Appetite No Night Sweats No Persistent Cough > 3 Weeks No Weight Loss No Barriers to Learning None evident Teaching Method Explanation Preferred Spoken Language Ethiopian Preferred Written Language Ethiopian Information Given by Patient Patient's Current Physicians Paras Magallon family Discharge To, Anticipated Home with family care Prev Test Positive/Diagnosis w/COVID-19 Yes Previous COVID-19 Positive Date 2021 Current Quarantine/Isolated any Illness No Any Contact with Sick Animals/Birds No Traveled Anywhere in Last 30 Days Yes Travel Where Within [facility] [place], [facility] N/A Personal Devices, Patient Valuables None Admission Note-Nursing Procedure/Therapy Intake . Assessment and Plan [place] [employer] Anesthesiologists (ASA) physical status classification: Class III. Anesthetic Preoperative Plan Premedication: None. Anesthetic technique: MAC. Induction: intravenously. Postoperative pain management: Per surgeon. Risks discussed: nausea, vomiting, headache, sore throat, dental injury, hypotension, allergic reaction, serious complications. Informed consent: signed by patient. Digitally Signed by ANGEL NAIR on 12/13/2022 07:51 AM [facility]04-29-2023 NoteHNO ID: [id number] Author: Christos Whitehead APRN.EASTON Service: ? Author Type: Nurse Practitioner Type: Progress Notes Filed: 09/04/2022 3:50 PM Note Text: September 04, 2022 HPI: Florencio Woodson is a 37 year old male who presents today for hemorrhoids x 1 month. He did a teledoc call and was given a hemrrhoid cream 3 weeks ago and they remain although not as bad as he has had before pt recently went to [place] and back in 2 days so a lot of driving. States he has had prednisone in the past that helped. Patient took ibuprofen. States he only has a little blood with bowel movements which are soft and some on toilet paper when wiping. No significant bleeding PAST MEDICAL HISTORY Diagnosis Date Kidney stones PAST SURGICAL HISTORY Procedure Laterality Date KIDNEY STONE SURGERY HX History reviewed. No pertinent family history. Social History Tobacco Use Smoking status: Never Smokeless tobacco: Never Vaping Use Vaping Use: Never used Substance Use Topics Alcohol use: Yes Comment: rarely ALLERGIES No Known Allergies There is no immunization history for the selected administration types on file for this patient. Current Medications: hydrocortisone (ANUSOL-HC) 2.5 % rectal cream APPLY TO THE AFFECTED AREA(S) THREE TIMES DAILY DIRECTED predniSONE (DELTASONE) 20 mg tablet Take 2 tablets by mouth once daily for 5 days. tamsulosin (FLOMAX) 0.4 mg TAKE 1 CAPSULE BY MOUTH EVERY DAY AT BEDTIME (Patient not taking: Reported on 07/03/2021) Benzonatate 200 mg capsule Take 1 capsule by mouth three times daily as needed for cough. (Patient not taking: Reported on 07/03/2021 ) albuterol HFA (PROAIR HFA) 90 mcg/actuation inhaler Inhale 2 Puffs as instructed every 4 hours as needed. (Patient not taking: Reported on 07/11/2021 ) Review of Systems Constitutional: Negative for chills and fever. Gastrointestinal: Negative for abdominal pain, diarrhea, nausea and vomiting. All other systems reviewed and are negative. Objective BP 174/82 Pulse 78 Temp 98.3 Resp 16 Ht 6' 0 (1.83m) Wt 390 lb (176.9kg) SpO2 96% BMI 52.88 kg/(m2). Physical Exam HENT: Head: Normocephalic and atraumatic. Mouth/Throat: Mouth: Mucous membranes are moist. Eyes: Conjunctiva/sclera: Conjunctivae normal. Cardiovascular: Rate and Rhythm: Normal rate and regular rhythm. Pulmonary: Effort: Pulmonary effort is normal. Abdominal: Palpations: Abdomen is soft. Tenderness: There is no abdominal tenderness. Genitourinary: Comments: Pt declines the rectal exam. States his (who is present) puts his cream in and says there is nothing external they are internal and no pain in the silver-rectal area. Skin: General: Skin is warm. Capillary Refill: Capillary refill takes less than 2 seconds. Neurological: Mental Status: He is alert and oriented to person, place, and time. ASSESSMENT/PLAN: 1. Internal hemorrhoids - ICD9: 455.0, ICD10: K64.8 Pt will continue the cream he was prescribed and was given instructions to follow up with surgeon if not better in 2-3 days. Has had these in the past and prednisone helped so I will give RX for same. Also encouraged to go to the ED for worsening condition - PREDNISONE 20 MG TABLET Christos Whitehead APRN.FACILITIES TECHNICIAN The above reflects my independent exam and review of the patient's medical record. I saw and examined the patient myself personally. Parts of the HPI, ROS, exam, impression/plan, and testing results may have been copied from the current or previous clinical notes and remain pertinent to today's visit. Current changes have been made and documented today. Other parts or data may have been deleted if not relevant for today. Plan as outlined above.[facility]04-29-2023 History of Present illness Narrative* Christos Whitehead APRN.FACILITIES TECHNICIAN - 09/04/2022 3:44 PM EDT September 04, 2022 HPI: Florencio Woodson is a 37 year old male who presents today for hemorrhoids x 1 month. He did a teledoc call and was given a hemrrhoid cream 3 weeks ago and they remain although not as bad as he hashad before pt recently went to [place] and back in 2 days so a lot of driving. States he has had prednisone in the past that helped. Patient took ibuprofen. States he only has a little blood with bowelmovements which are soft and some on toilet paper when wiping. No significant bleeding PAST MEDICAL HISTORY Diagnosis Date Kidney stones PAST SURGICAL HISTORY Procedure Laterality Date KIDNEY STONE SURGERY HX History reviewed. No pertinent family history. Social History Tobacco Use Smoking status: Never Smokeless tobacco: Never Vaping Use Vaping Use: Never used Substance Use Topics Alcohol use: Yes Comment: rarely ALLERGIES No Known Allergies There is no immunization history for the selected administration types on file for this patient. Current Medications: hydrocortisone (ANUSOL-HC) 2.5 % rectal cream APPLY TO THE AFFECTED AREA(S) THREE TIMES DAILY DIRECTED predniSONE (DELTASONE) 20 mg tablet Take 2 tablets by mouth once daily for 5 days. tamsulosin (FLOMAX) 0.4 mg TAKE 1 CAPSULE BY MOUTH EVERY DAY AT BEDTIME (Patient not taking: Reported on 07/03/2021) Benzonatate 200 mg capsule Take 1 capsule by mouth three times daily as needed for cough. (Patient not taking: Reported on 07/03/2021 ) albuterol HFA (PROAIR HFA) 90 mcg/actuation inhaler Inhale 2 Puffs as instructed every 4 hours as needed. (Patient not taking: Reported on 07/11/2021 ) Review of Systems Constitutional: Negative for chills and fever. Gastrointestinal: Negative for abdominal pain, diarrhea, nausea and vomiting. All other systems reviewed and are negative. Objective BP 174/82 Pulse 78 Temp 98.3 Resp 16 Ht 6' 0 (1.83m) Wt 390 lb (176.9kg) SpO2 96% BMI 52.88 kg/(m^2). Physical Exam HENT: Head: Normocephalic and atraumatic. Mouth/Throat: Mouth: Mucous membranes are moist. Eyes: Conjunctiva/sclera: Conjunctivae normal. Cardiovascular: Rate and Rhythm: Normal rate and regular rhythm. Pulmonary: Effort: Pulmonary effort is normal. Abdominal: Palpations: Abdomen is soft. Tenderness: There is no abdominal tenderness. Genitourinary: Comments: Pt declines the rectal exam. States his (who is present) puts his cream in and says there is nothing external they are internal and no pain in the silver-rectal area. Skin: General: Skin is warm. Capillary Refill: Capillary refill takes less than 2 seconds. Neurological: Mental Status: He is alert and oriented to person, place, and time. ASSESSMENT/PLAN: 1. Internal hemorrhoids - ICD9: 455.0, ICD10: K64.8 Pt will continue the cream he was prescribed and was given instructions to follow up with surgeon if not better in 2-3 days. Has had these in the past and prednisone helped so I will give RX for same. Also encouraged to go to the ED for worsening condition - PREDNISONE 20 MG TABLET Christos Whitehead APRN.FACILITIES TECHNICIAN The above reflects my independent exam and review of the patient's medical record. I saw and examined the patient myself personally. Parts of the HPI, ROS, exam, impression/plan, and testing results may have been copied from the current or previous clinical notes and remain pertinent to today's visit. Current changes have been made and documented today. Other parts or data may have been deleted if not relevant for today. Plan as outlined above. [facility] Instructions* Patient Instructions* Christos Whitehead APRN.CNP - 09/04/2022 3:42 PM EDT Follow up with GENERAL SURGERY [address] [place] [phone] GASTROENTEROLOGY MELVINA HOWELL MD [address] JORJE Liu [phone] Hemorrhoids Hemorrhoids are veins covered with the lining of the anal canal located in or around the anus. Hemorrhoids can be external, internal or a combination of both (interno-external). External hemorrhoids can be skin alone or skin with a vein underneath. Internal hemorrhoids are dilated veins which protrude inside when small or can sometimes extend outside the anus either after a bowel movement; they can also be present externally all the time. Hemorrhoids are usually not painful. Small hemorrhoids cannot be seen but can bleed after a hard bowel movement/straining or too frequent bowel movements. Hemorrhoids that protrude out after a bowel movement often go back in spontaneously. Occasionally they have to be manually pushed in. Hemorrhoids that protrude out and do not go back in can sometimes get large and form a clot; these are called thrombosed prolapsed hemorrhoids. External hemorrhoids can also form a clot and this can be very painful; this is called a thrombosedexternal hemorrhoid. Certain conditions may cause internal hemorrhoids to bulge, become irritated, and bleed, including: Trauma during childbirth The extra weight of Obesity Chronic constipation with straining Anal intercourse What are the symptoms of internal hemorrhoids? Painless rectal bleeding on the toilet paper or in the toilet bowl is the most common symptom. Pain can occur with thrombosed hemorrhoids or hemorrhoids that can suddenly not be reposited in theanal canal. Another symptom is the protrusion of the hemorrhoids after a bowel movement; the hemorrhoids eitherspontaneously go back in or have to be pushed in manually. What are the symptoms of external hemorrhoids? A grape-like lump on the anus Itching and soreness in and around the anus Blood on underwear, toilet paper, the surface of the stool, or in the toilet bowl What causes hemorrhoids? Hemorrhoids are caused by repeated pressure and strain, which might be caused by: Straining at stool Frequent constipation (hard or difficult bowel movements) Diarrhea (frequent, loose, watery stool) (especially in the third trimester) Cirrhosis of the liver (can cause pooling of blood in the vessels around the rectum) How are hemorrhoids diagnosed? Usually, an explanation of your symptoms is an important clue to your doctor. On examination, external hemorrhoids and bulging hemorrhoids may be visible. When hemorrhoids are not visible beyond the anus, your doctor will examine the inside of the anal canal using a lighted instrument called an anoscope. Often, your doctor will recommend a detailed examination of your sigmoid colon and rectum using a lighted scope (a procedure called flexible sigmoidoscopy) to ensure that there is no inflammatory disease such as Crohn's disease or ulcerative colitis or cancer. How can I relieve the acute pain? Take warms soaks in the bath (sitz baths). Sit in plain, warm water for about 10 minutes several times a day. Apply a hemorrhoid cream, or use a suppository. Follow the directions on the package. Don't strain during bowel movements. Keep stools soft. See your doctor. How can I relieve constipation? Increase the amount of fiber in your diet. Good sources of fiber are fruits, vegetables, and whole grains. Five to ten servings of fruits and vegetables are recommended each day. Fiber supplements might be helpful - examples include Metamucil and Citrucel . Sparingly use [id number] laxatives or stool softeners. Stool softeners such as Colace are relatively safe, but prolonged use of osmotic or stimulant laxatives might not be. Exercise regularly. Even walking regularly helps improve the normal flow of material through the intestine. Empty the bowels when you feel the urge to do so. Immediately following a meal, the body will have a natural urge to defecate. That's a good time to plan a visit to the bathroom. How can I prevent hemorrhoids? The best way to prevent hemorrhoids is to keep bowel movements regular and stool soft. Try some of the tips for relieving constipation listed above. Also, avoid prolonged standing, sitting, and heavylifting, and chronic coughing, straining at stool, and aggressive wiping. How are hemorrhoids treated? Occasional rectal bleeding can be controlled by keeping the stools regular and soft. An examination is essential to rule out other causes of bleeding. Painful hemorrhoids can be treated with: Warm tub baths several times a day in plain, warm water for about 10 minutes In some cases, hemorrhoids must be treated surgically. Surgery is used to shrink and or excise (cutout) the hemorrhoidal tissue. A number of methods might be used to remove or reduce the size of internal hemorrhoids. These techniques include: Rubber band ligation - A rubber band is placed around the base of the hemorrhoid inside the rectum.The band cuts off circulation, causing the hemorrhoid to wither away within a few days. This can bedone in an office setting and does not need anesthesia. Sclerotherapy - A chemical solution is injected around the blood vessel to shrink the hemorrhoid. This is not done routinely for hemorrhoids. Infrared coagulation - A special device is used to burn hemorrhoidal tissue. This can treat small hemorrhoids. Procedure for prolapsed hemorrhoids (PPH) - This is done for hemorrhoids that come out of the anal canal. This is done under anesthesia and uses a device to fix the hemorrhoids at the position from where they came down. Hemorrhoidal arterial ligation - This can be done for different grades of hemorrhoids and uses a Doppler probe to identify and tie the vessels feeding the hemorrhoid, thereby shrinking it. Hemorrhoidectomy - Occasionally, extensive or severe internal or external hemorrhoids might requireremoval by surgery known as hemorrhoidectomy. This procedure involves excision of the hemorrhoid and the skin overlying it. Copyright 4639-2057 [employer] [facility]. All rights reserved This information is provided by the [facility] and is not intended to replace the medical advice of your doctor or health care provider. Please consult your health care provider for advice about a specific medical condition. For additional health information, please contact the Center for Consumer Health Information at the [facility] or toll-free extension 43771. If you prefer, you may visit [email or web address] or [email or web address]. This document was last reviewed on: 2009 index#4242 documented in [facility] Emergency department Note * Lilo Castle RN - 10/03/2020 8:14 PM EDT Pt discharge teaching completed at this time. Pt discharge instructions reviewed. All questions/concerns addressed at this time. Pt denies any further questions/concerns at this time. Pt discharged at this time. Pt family is at bedside at this time to drive pt home. * Rosy Calderon LPN - 10/03/2020 6:48 PM EDT Pt attempting to provide urine sample. * Rosy Calderon LPN - 10/03/2020 5:24 PM EDT Patient reports flank pain that started approx 3 days ago. States he had a CT done at [facility] ordered by his pcp. States they were sent here due to no urology coverage in [place]. Paperwork states 3mm obstructive stone noted in proximal L ureter causing mild hydronephrosis. Patient rests in cot NAD noted. Rates pain 4/10 * Destini Demarco RN - 10/03/2020 5:10 PM EDT Pt ambulatory to triage. Reports was sent by [facility] for urology coverage. Believes has kidney stone. Left sided flank pain for 3 days. Reports emesis x1. Rates pain 4/10. Respirations easy, regular and unlabored. No SOB noted. NAD noted. GCS 15. A&Ox3. Skin warm, dry and intact. Denies pain. Pt comes with CT scan [facility] of Present illness Narrative* Encounter Date Complaint History Of Prese nt Illness problem possible kidney stone. has had sxs for 3 days now. pain back (left) , abd, and bellow, + blood in urine.vomiting x 1no fevers/chillsno dysuriano hx of renal stones, he took flomax per ZR yesterday but was in [place] so he could not take a pain medication. sleep reports tel ls him he whimpers in his sleep. Denies snoring except when has cold/URI. Feels rested in am. Plans to discuss with PCP at f/u visit. mood Gets irritated a lot. Worries and feels anxious. problem Weight gain. Low energy. Irritable a lot. Gets angry. Yells a lot. 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 Headache (comments) checking joycelyn e bp and getting 120's/80's. earlier this morning though [id number]. noticed ALVAREZ starting 1 year ago and gets them couple times weekly. usually at base of skull and feels like vice around head. 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 notices occasional blurred vision after staring at computer for period of time and resolves with blinking. bs is concern. Headache Associated sympt oms include blurred vision. Additional information: BP been running high. Would like sugar checked. cough The patient desc ribes the cough as moist and non-productive. The problem has become gradually worse. Associated symptoms include cough, fatigue, nasal congestion, post-nasal drainage, rhinorrhea and sinus pressure. Pertinent negatives include chills, dyspnea, fever and wheezing. Additional information: Present x 4 days. Increased PND. Purulent nasal drainage. Cough worse at night. est (comments) 2 days ago notic ed BRBPR with wiping and BRBPR. denies any rectal pain. stomach has felt tight last couple days but no pain. has history of hemorrhoids in the past with painful BM. no constipation. no fam hx of colon cancer. denies any dizziness or lightheadedness. [facility] [place] [facility] Work Phone: [phone]) 806-188505-22-2020 Instructions* Date Instruction Additional Infor mation Men's multivit. Main tain a regular cardiovascular exercise program. Maintain adequate clear fluid intake. Maintain adequate rest. Related to Fatigue, unspecified type Weight loss is recom mended. Advised to maintain a low-fat, low-cholesterol diet. Maintain a regular cardiovascular exercise program. Related to Body mass index (BMI) 50.0-59.9, adult Start fluoxetine. Co nsider counseling if persists Related to Behavior-irritability Fluoxetine 20 mg a day. Related to Mood disorder Zpak and prednisone. Increase fluids. May use generic sudafed short term. Related to Acute sinusitis, unspecified [facility] Work Phone: consult note* Clinical Note Date No [employer] Work Phone: Discharge summary* Clinical Note Date No [employer] Work Phone: Evaluation note* Diagnosis Ureterolithiasis- Primary Calculus of ureter [facility] Type Assessment Date No [employer] Work Phone: Evaluation note* Diagnosis Internal hemorrhoids- Primary Internal hemorrhoids without mention of complication [facility]* Clinical Note Date No [employer] Work Phone: Hospital course Narrative No data available for this section [facility] Hospital Discharge instructions* Attachments The following attachments cannot be sent through Care Everywhere. * Kidney Stone (Russian Ethiopian) [facility]* Clinical Note Date No [employer] Work Phone: Reason for referral (narrative)* Consultation (Routine) Status Reason Specialty Diagnoses / Procedures Referre d By Contact Referred To Contact [facility] Diagn[facility] Ureterolithiasis Corbin Garcia MD [address] [place] [address] [facility] [address] [place] [address] Electronically signed by Corbin Garcia [facility] (n[facility]ative[facility] Reason For Referral No Information [facility] Work Phone: Summary Purpose Family History Family Member Type Diagnosis Age At Onset Father Problem (finding) hypertension Mother Problem (finding) Alive and well Sister Problem (finding) Alive and well Son Problem (finding) Alive and well Advance Directives Documents on File Type Date Recorded 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 Advance Directives and Living Will 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 Yes / No Effective Date File Name No Information Additional Source Comments (unrecognized sect ion and content) No Status Records FoundNo Status Records FoundNo Status Records FoundNo Status Records FoundNo Status Records FoundNo Status Records FoundNo Status Records FoundNo Status Records FoundNo Status Records FoundNo Status Records Found INFORMATION SOURCE (unrecogn ized section and content) DATE CREATED AUTHOR AUTHOR'S ORGANIZ ATION 03/27/2020 [facility] DATE CREATED AUTHOR AUTHOR'S ORGANIZ ATION 03/31/2020 [facility] DATE CREATED AUTHOR AUTHOR'S ORGANIZ ATION 10/06/2020 [facility] DATE CREATED AUTHOR AUTHOR'S ORGANIZ ATION 11/18/2020 [facility] DATE CREATED AUTHOR AUTHOR'S ORGANIZ ATION 06/03/2021 [facility] DATE CREATED AUTHOR AUTHOR'S ORGANIZ ATION 07/21/2021 [facility] DATE CREATED AUTHOR AUTHOR'S ORGANIZ ATION 09/04/2022 [facility] DATE CREATED AUTHOR AUTHOR'S ORGANIZ ATION 12/14/2022 [facility] ([place] DATE CREATED AUTHOR AUTHOR'S ORGANIZ ATION 01/10/2023 [facility] Reason for Visit (unrecogniz ed section and content) Reason Comments Rectal Problem Patient states he is here for hemrrhoids x 1 month. He did a teledoc call and was given a hemrrhoid cream. Patient took ibuprofen. Scheduled Active and Recently Administ ered Medications (unrecognized section and content) Source Comments (unrecognize d section and content) In the event this informatio n is protected by the Federal Confidentiality of Alcohol and Drug Abuse Patient Records regulations: The Federal rules restrict any use of the information to criminally investigate or prosecute any alcohol or drug abuse patient.[facility] FOR RECORDS PERTAINING TO PATIENTS WHO ARE OR HAVE BEEN ENROLLED IN A CHEMICAL DEPENDENCY/SUBSTANCEABUSE PROGRAM, SOME INFORMATION MAY BE OMITTED. This clinical summary was aggregated from multiple sources. Caution should be exercised in using it in the provision of clinical care. This summary normalizes information from multiple sources, and as a consequence, information in this document may materially change the coding, format and clinical context of patient data. In addition, data may be omitted in some cases. CLINICAL DECISIONS SHOULD BE BASED ON THE PRIMARY CLINICAL RECORDS. [facility] [facility]. provides no warranty or guarantee of the accuracy or completeness of information in this document.
== END | disposition home or self-care (01) ==
LOC: MTRAD 17:21
PROVIDERS: PCP Family Medicine; Referring Provider Family Medicine; Visit Provider Family Medicine
DX: M54.9 Dorsalgia, unspecified (principal)
CPT/HCPCS: 72110

== ENCOUNTER → 2023-06-14 | Outpatient (CLI) | payer OTHER, SELFPAY ==
[2023-06-14 13:15] LABS: ALB/GLOB Ratio 0.9 RATIO (0.9-2.4); AST(SGOT) 29 U/L (15-37); Alanine Aminotransfer ALT/SGPT 51 U/L (16-61); Albumin, Serum 3.7 g/dL (3.2-5.0); Alkaline Phosphatase 115 U/L (45-117); Anion Gap 5 (5-15); BUN 7 mg/dL (7-18); BUN/Creat Ratio 7.4 RATIO (10-20); Chloride 106 mmol/L (98-107); Cholesterol 160 mg/dL (200); Creatinine, Serum 0.94 mg/dL (0.70-1.30); EST Glomerular Filtration Rate 94 mL/min (>60); Est Glom Filt Rate - Afr Amer 114 mL/min (>60); Globulin 4.1 g/dL (2.2-4.2); Glucose 93 mg/dL (74-106); High Density Lipoprotein 52 mg/dL; Potassium 3.5 mmol/L (3.5-5.1); Protein, Total 7.8 g/dL (6.4-8.2); Sodium Level 137 mmol/L (136-145); Thyroid Stim Hormone (TSH) 1.56 uIU/mL (0.358-3.74); Triglycerides 66 mg/dL; Very Low Density Lipoprotein 13 mg/dL (5-40)
[2023-06-14 14:06] LABS: Hemoglobin A1c 5.2 % (3.8-5.6)
[2023-06-14 18:11] LABS: Absolute Lymphocyte Count 2.09 X10^3/uL (0.83-4.51); Absolute Neutrophil Count 3.7 X10^3/uL (2.0-7.7); Basophil# 0.06 X10^3/uL; Basophil% 0.9 % (0-1); Eosinophil# 0.09 X10^3/uL; Eosinophils% 1.4 % (0-5); Hematocrit 49.7 % (40-54); Hemoglobin 16.6 g/dL (13.0-16.5); Lymphocyte # 2.09 X10^3/ul (0.83-4.51); Lymphocyte % 32.7 % (19-41); Mean Corp Hgb Conc 33.4 g/dL (32-36); Mean Corpuscular Hgb 31.7 pg (27.0-32.0); Mean Corpuscular Volume 94.8 fL (80-94); Monocyte# 0.49 X10^3/uL; Monocyte% 7.7 % (0-10); NRBC Flagged by Analyzer 0 % (0-5); Neutrophil # 3.65 X10^3/uL (2.7-7.7); Neutrophil % 57.1 % (47-70); Platelet Count 309 K/mm3 (150-450); RBC Distribution Width SD 45.3 fl (35.1-43.9); Red Blood Count 5.24 M/mm3 (4.6-6.2); White Blood Count 6.4 K/mm3 (4.4-11.0)
== END | disposition home or self-care (01) ==
LOC: MTLAB 10:09
PROVIDERS: PCP Family Medicine; Referring Provider Family Medicine; Visit Provider Family Medicine
DX: Z13.220 Encounter for screening for lipoid disorders (principal); E66.01 Morbid (severe) obesity due to excess calories; Z13.1 Encounter for screening for diabetes mellitus
CPT/HCPCS: 36415; 80053; 80061; 83036; 84443; 85025

== ENCOUNTER → 2024-02-24 | Outpatient (CLI) | payer OTHER, SELFPAY ==
--- NOTE | 2024-02-24 15:32 | RAD_ITS ---
EXAM: XR RIGHT FOOT COMPLETE, 3 OR MORE VIEWS CLINICAL INDICATION: CYST OF FOOT TECHNIQUE: Frontal, lateral and oblique views of the right foot. COMPARISON: No relevant prior studies available. FINDINGS: BONES/JOINTS: Unremarkable. No acute fracture. No subluxation. Normal alignment. Preservation of the joint space. No sclerotic or destructive changes observed. SOFT TISSUES: Unremarkable. No soft tissue swelling or gas. No radiopaque foreign body. RAD/Foot min 3 Views IMPRESSION: Negative right foot x-rays. Electronically Signed: Dc Bernal MD at 14:36 EDT ,
== END | disposition home or self-care (01) ==
LOC: MTRAD 15:31
PROVIDERS: PCP Family Medicine; Referring Provider Family Medicine; Visit Provider Family Medicine
DX: M71.379 Other bursal cyst, unspecified ankle and foot (principal)
CPT/HCPCS: 73630